=== PATIENT | male | born 1960 | race Caucasian/White ===

== ENCOUNTER 2017-11-13 15:02 | Inpatient (IN) | payer OTHER, MEDICARE ==
[~2017-11-13] VITALS: Ht 182.9 cm; Wt 73.2 kg
[2017-11-13] VITALS (7 sets, daily range): BP systolic 120; BP diastolic 83; PULSE 92–107; RESP 14–18; TEMP 97.3–97.6; O2SAT 98–100
[~2017-11-13 15:02] MED LIST: CALCIUM CHLORIDE 10% SOLN 1 GRAM/10 ML SYR IV ONE; IBUP-232 PO; LIDOCAINE HCL 1% PF 5 ML SYRINGE OTHER ONE; PHENYLEPH/NS 1000 MCG/10 ML SYR IV ONE; PROPOFOL 200 MG/20 ML AMP IV ONE; ROCURONIUM INJ 50 MG/5 ML SYRINGE IV PUSH ONE; SODIUM BICARBONATE 8.4% INJ 50 MEQ/50 ML SYR IV ONE; SODIUM CHLOR 0.9% 1000 ML INJ 3,000 ML IV ONE; VECURONIUM BROMIDE 20 MG VIAL IV ONE; ceFAZolin INJ 1,000 MG VIAL IV ONE; ePHEDrine/NS 25 MG/5 ML SYRINGE IV ONE
[2017-11-13 15:25] LABS: AUTOMATED NEUTROPHIL # 13.5 TH/MM3 (1.8-7.7); BASOPHIL # 0.1 TH/MM3 (0-0.2); BASOPHIL % 0.4 % (0.0-2.0); EOSINOPHIL # 0.1 TH/MM3 (0-0.4); EOSINOPHIL % 0.5 % (0.0-4.0); HEMATOCRIT 34.8 % (39.0-51.0); LYMPH % 15.4 % (9.0-44.0); LYMPHOCYTE # 2.6 TH/MM3 (1.0-4.8); MEAN CELL VOLUME 87.6 FL (80.0-100.0); MEAN CORPUSCULAR HEMOGLOBIN 30.3 PG (27.0-34.0); MEAN CORPUSCULAR HGB CONC 34.6 % (32.0-36.0); MEAN PLATELET VOLUME 7.1 FL (7.0-11.0); MONO % 3.5 % (0.0-8.0); MONOCYTE # 0.6 TH/MM3 (0-0.9); NEUT % 80.2 % (16.0-70.0); PLATELET COUNT 268 TH/MM3 (150-450); RED BLOOD COUNT 3.98 MIL/MM3 (4.50-5.90); RED CELL DISTRIBUTION WIDTH 13.8 % (11.6-17.2); WHITE BLOOD COUNT 16.9 TH/MM3 (4.0-11.0)
[2017-11-13] MEDS ORDERED: ONDANSETRON HCL 4 MG/2 ML VIAL IV PUSH PRN (15:30)
[2017-11-13] MEDS ORDERED: fentaNYL DRIP 250 ML IV PRN (15:30)
[2017-11-13] MEDS ORDERED: PROPOFOL 1000 MG/100 ML INJ 100 ML IV PRN (15:30)
[2017-11-13] MEDS ORDERED: NALOXONE HCL 0.4 MG/ML AMP IV PUSH PRN (15:30)
[2017-11-13] MEDS ORDERED: Post-op Orders (for Pharmacy) XX ONE (15:30)
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
[2017-11-13] MEDS ORDERED: IOHEXOL 350 MG/ML 10 ML VIAL (for RAD DIAG) IVCONTRAST ONE (15:35)
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
[2017-11-13] MEDS ORDERED: PROPOFOL 200 MG/20 ML AMP ONE (15:38)
[2017-11-13] MEDS ORDERED: ROCURONIUM INJ 50 MG/5 ML VIAL ONE (15:38)
[2017-11-13 15:49] LABS: INTERNATIONAL NORMALIZED RATIO 1.1 RATIO; PROTHROMBIN TIME - PATIENT 11.4 SEC (9.8-11.6)
[2017-11-13] MEDS: PANTOPRAZOLE SOD 40 MG DELAYED RELEASE TAB PO SCH (16:00)
[2017-11-13] MEDS ORDERED: SODIUM CHLOR 0.9% 1000 ML INJ 1,000 ML IV SCH (16:00)
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
[2017-11-13] MEDS ORDERED: HEPARIN SODIUM - SQ 10,000 UNITS/ML VIAL ONE (16:10)
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
--- NOTE | 2017-11-13 16:29 | RADRPT ---
EXAM DATE/TIME: 11/13/2017 16:06 [facility] COMPARISON: No previous studies available for comparison. INDICATIONS : Post central line placement and left chest tube placement. MEDICAL HISTORY : None. SURGICAL HISTORY : None. ENCOUNTER: Subsequent ACUITY: 1 day PAIN SCORE: Non-responsive. LOCATION: Bilateral chest FINDINGS: A left subclavian central catheter is present with tip extending to the SVC. Left thoracostomy tube i s present. Nasogastric tube descends in the stomach. Endotracheal tube is stable in satisfactory posi tion. There is mild diffuse hazy opacity of the left chest which may be developing contusion or depen dent hemothorax. Cardiac contours are grossly satisfactory for technique and projection. Multiple lef t-sided rib fractures are noted. CONCLUSION: Satisfactory central line and thoracostomy tube positioning. Worsening aeration in the left lung López Rodrigues MD on November 13, 2017 at 16:25 Board Certified Radiologist. This report was verified electronically.
[2017-11-13] MEDS ORDERED: CALCIUM CHLORIDE 10% SOLN 1 GRAM/10 ML SYR ONE (16:40)
[2017-11-13] MEDS ORDERED: PHARMACY NEEDS HT/WT ENTERED SCH (16:45)
[2017-11-13] MEDS ORDERED: MIDAZOLAM HCL 2 MG/2 ML VIAL ONE (17:00)
[2017-11-13] MEDS ORDERED: SODIUM BICARBONATE 8.4% INJ 50 MEQ/50 ML SYR ONE (17:02)
[2017-11-13] MEDS: PROPOFOL 1000 MG/100 ML INJ 100 ML IV PRN (18:59)
[2017-11-13] MEDS: fentaNYL DRIP 250 ML IV PRN (19:00)
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
[2017-11-13 19:09] LABS: HEMATOCRIT 34.9 % (39.0-51.0); MEAN CELL VOLUME 86.8 FL (80.0-100.0); MEAN CORPUSCULAR HEMOGLOBIN 29.8 PG (27.0-34.0); MEAN CORPUSCULAR HGB CONC 34.3 % (32.0-36.0); MEAN PLATELET VOLUME 7.1 FL (7.0-11.0); PLATELET COUNT 159 TH/MM3 (150-450); RED BLOOD COUNT 4.02 MIL/MM3 (4.50-5.90); RED CELL DISTRIBUTION WIDTH 15.4 % (11.6-17.2); WHITE BLOOD COUNT 13.9 TH/MM3 (4.0-11.0)
[2017-11-13] MEDS: SODIUM CHLOR 0.9% 1000 ML INJ 1,000 ML IV SCH (19:15)
[2017-11-13 19:19] LABS: BICARBONATE 25.8 MEQ/L (21.0-32.0); CALCIUM 7.6 MG/DL (8.5-10.1); CREATININE 1.13 MG/DL (0.60-1.30)
--- NOTE | 2017-11-13 19:45 | RADRPT ---
EXAM DATE/TIME: 11/13/2017 18:56 [facility] COMPARISON: CHEST SINGLE AP, November 13, 2017, 16:06. INDICATIONS : Post chest tube placement, post op. MEDICAL HISTORY : None. SURGICAL HISTORY : None. ENCOUNTER: Subsequent ACUITY: 1 day PAIN SCORE: Non-responsive. LOCATION: Left chest FINDINGS: Endotracheal tube in good position. NG enters stomach. Left-sided chest tube with small residual left pneumothorax. Air in left chest wall. Bilateral perihilar and basilar airspace disease. Left-sided V as-Cath tip in superior vena cava. Drain present in the left upper quadrant. CONCLUSION: 1. Left chest tube with tiny left apical pneumothorax and air in the left chest wall. Endotracheal tube, nasogastric tube, left Vas-Cath unchanged. New drain in left lower thorax. Josué Mathur MD on November 13, 2017 at 19:41 Board Certified Radiologist. This report was verified electronically.
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
[2017-11-13] MEDS ORDERED: CHLORHEXIDINE 0.12% (ORAL KIT) 15 ML CUP MT SCH (20:00)
[2017-11-13] MEDS: CHLORHEXIDINE 0.12% (ORAL KIT) 15 ML CUP MT SCH (20:00)
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
--- NOTE | 2017-11-13 20:26 | EKG ---
Date Performed: 11/13/2017 Time Performed: 20:05:08 PTAGE: 89 years EKG: Sinus rhythm POSSIBLE LEFT ATRIAL ENLARGEMENT BORDERLINE ECG NO PREVIOUS TRACING DOCTOR: Anthony Abernathy Interpretating Date/Time 11/13/2017 20:25:57
[2017-11-13] MEDS: metroNIDAZOLE 500 MG INJ 100 ML IV SCH (21:17)
[2017-11-13] MEDS: SODIUM CHLORIDE 0.9% FLUSH 10 ML FLUSH IV FLUSH SCH (21:18)
[2017-11-13] MEDS: levETIRAcetam INJ 500 MG in SODIUM CHLORIDE 0.9% INJ 100 ML IV SCH (21:18)
[2017-11-14] VITALS (17 sets, daily range): BP systolic 98–136; BP diastolic 56–78; PULSE 76–103; RESP 17–18; TEMP 97.6–99.3; O2SAT 94–100
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
[2017-11-14] MEDS: SODIUM CHLOR 0.9% 1000 ML INJ 1,000 ML IV SCH ×5 (02:23→20:45)
--- NOTE | 2017-11-14 03:24 | RADRPT ---
EXAM DATE/TIME: 11/14/2017 02:03 [facility] COMPARISON: CHEST SINGLE AP, November 13, 2017, 18:56. INDICATIONS : Short of breath. MEDICAL HISTORY : None. SURGICAL HISTORY : None. ENCOUNTER: Subsequent ACUITY: 2 days PAIN SCORE: Non-responsive. LOCATION: Bilateral chest FINDINGS: Endotracheal tube, left subclavian catheter, left chest tube, left lower chest Tommy-Kohler drain, a nd gastric tube are stable in position. Stable infiltrates in the central left lung. Similar degree of subcutaneous emphysema about the left chest. There are a few linear opacities in the lower right lung suggesting atelectasis or scarring. CONCLUSION: Lines and tubes stable. Stable left lung infiltrates. Favian Leung MD on November 14, 2017 at 3:19 Board Certified Radiologist. This report was verified electronically.
[2017-11-14] MEDS: metroNIDAZOLE 500 MG INJ 100 ML IV SCH ×2 (04:23→12:09)
[2017-11-14] MEDS: PROPOFOL 1000 MG/100 ML INJ 100 ML IV PRN ×4 (06:07→23:33)
[2017-11-14] MEDS: 3% SALINE INJ 500 ML IV SCH ×2 (06:50→12:50)
[2017-11-14] MEDS ORDERED: POTASSIUM CHLORIDE 20 MEQ PWD PACKET PO PRN (07:00)
[2017-11-14] MEDS ORDERED: MAGNESIUM SULFATE INJ 2 GM in SODIUM CHLORIDE 0.9% INJ 96 ML IV PRN (07:00)
[2017-11-14] MEDS ORDERED: POTASSIUM PHOSPHATE INJ 30 MMOL in SODIUM CHLOR 0.9% 250 ML INJ 250 ML IV PRN (07:00)
[2017-11-14] MEDS ORDERED: POTASSIUM PHOSPHATE MONOBASIC 500 MG TAB PO PRN (07:00)
[2017-11-14] MEDS ORDERED: MAGNESIUM OXIDE 400 MG TAB PO PRN (07:00)
[2017-11-14] MEDS ORDERED: POTASSIUM CHLOR 40 MEQ PREMIX 100 ML IV PRN ×2 (07:00)
[2017-11-14] MEDS ORDERED: POTASSIUM CHLOR 20 MEQ PREMIX 100 ML IV PRN ×2 (07:00)
[2017-11-14] MEDS ORDERED: MAGNESIUM SULFATE INJ 4 GM in SODIUM CHLORIDE 0.9% INJ 92 ML IV PRN (07:00)
[2017-11-14] MEDS ORDERED: POTASSIUM PHOSPHATE MONOBASIC 500 MG TAB PO/TUBE PRN (07:00)
[2017-11-14] MEDS ORDERED: SODIUM PHOSPHATE INJ 30 MMOL in SODIUM CHLOR 0.9% 250 ML INJ 240 ML IV PRN (07:00)
[2017-11-14] MEDS ORDERED: ceFAZolin 2 GM PREMIX 50 ML ONE (07:21)
[2017-11-14] MEDS ORDERED: THROMBIN (TOPICAL) 5,000 UNIT VIAL ONE ×2 (07:21→10:56)
[2017-11-14] MEDS ORDERED: VANCOMYCIN HCL 1000 MG VIAL ONE ×2 (07:21→14:06)
[2017-11-14] MEDS ORDERED: BUPIVACAINE/EPINEPHRINE 0.5% PF 30 ML VIAL ONE (07:21)
[2017-11-14] MEDS ORDERED: GELFOAM SIZE 100 ONE (07:21)
[2017-11-14] MEDS ORDERED: GENTAMICIN SULFATE 80 MG/2 ML VIAL ONE (07:23)
[2017-11-14] MEDS: CHLORHEXIDINE 0.12% (ORAL KIT) 15 ML CUP MT SCH ×2 (08:00→20:45)
[2017-11-14] MEDS ORDERED: TERBUTALINE INJ 1 MG/ML AMP SQ PRN (08:00)
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
[2017-11-14 08:13] LABS: AUTOMATED NEUTROPHIL # 10.9 TH/MM3 (1.8-7.7); BASOPHIL % 0.2 % (0.0-2.0); HEMATOCRIT 30.6 % (39.0-51.0); HEMOGLOBIN 10.7 GM/DL (13.0-17.0); LYMPH % 10.2 % (9.0-44.0); LYMPHOCYTE # 1.4 TH/MM3 (1.0-4.8); MEAN CELL VOLUME 85.4 FL (80.0-100.0); MEAN CORPUSCULAR HEMOGLOBIN 29.8 PG (27.0-34.0); MEAN CORPUSCULAR HGB CONC 34.9 % (32.0-36.0); MEAN PLATELET VOLUME 7.4 FL (7.0-11.0); MONO % 9.5 % (0.0-8.0); MONOCYTE # 1.3 TH/MM3 (0-0.9); NEUT % 80.1 % (16.0-70.0); PLATELET COUNT 190 TH/MM3 (150-450); RED BLOOD COUNT 3.58 MIL/MM3 (4.50-5.90); RED CELL DISTRIBUTION WIDTH 15.9 % (11.6-17.2); WHITE BLOOD COUNT 13.7 TH/MM3 (4.0-11.0)
[2017-11-14] MEDS: levETIRAcetam INJ 500 MG in SODIUM CHLORIDE 0.9% INJ 100 ML IV SCH ×2 (08:48→20:44)
[2017-11-14] MEDS: SODIUM CHLORIDE 0.9% FLUSH 10 ML FLUSH IV FLUSH SCH ×2 (08:48→20:44)
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
[2017-11-14] MEDS: NOREPINEPHRINE INJ 4 MG in SODIUM CHLOR 0.9% 250 ML INJ 246 ML IV PRN (10:30)
[2017-11-14 10:55] LABS: BICARBONATE 23.1 MEQ/L (21.0-32.0); CREATININE 1.43 MG/DL (0.60-1.30)
[2017-11-14] MEDS ORDERED: HEPARIN SODIUM - SQ 10,000 UNITS/ML VIAL ONE (10:56)
[2017-11-14] MEDS ORDERED: GELATIN POWDER 1 GM PACKET ONE (10:56)
[2017-11-14 10:57] LABS: CALCIUM 7.3 MG/DL (8.5-10.1); PHOSPHORUS 3.8 MG/DL (2.5-4.9)
[2017-11-14] MEDS ORDERED: ePHEDrine/NS 25 MG/5 ML SYRINGE IV ONE (12:00)
[2017-11-14] MEDS ORDERED: SODIUM CHLORID 0.9% 500 ML INJ 500 ML IV ONE (12:00)
[2017-11-14] MEDS ORDERED: LACTATED RINGER'S 1000 ML INJ 2,000 ML IV ONE (12:00)
[2017-11-14] MEDS ORDERED: PROPOFOL 200 MG/20 ML AMP IV ONE (12:00)
[2017-11-14] MEDS ORDERED: NORMOSOL R INJ 1,000 ML IV ONE (12:00)
[2017-11-14] MEDS ORDERED: PHENYLEPHRINE HCL 10 MG/ML VIAL IV ONE (12:00)
[2017-11-14] MEDS ORDERED: SODIUM CHLOR 0.9% 250 ML INJ 500 ML IV ONE (12:00)
[2017-11-14] MEDS ORDERED: PHENYLEPH/NS 1000 MCG/10 ML SYR IV ONE (12:00)
[2017-11-14] MEDS ORDERED: ROCURONIUM INJ 50 MG/5 ML SYRINGE IV PUSH ONE (12:00)
[2017-11-14] MEDS ORDERED: GLYCOPYRROLATE 0.6 MG/3 ML SYRINGE IV PUSH ONE (12:00)
[2017-11-14] MEDS ORDERED: DEXAMETHASONE SOD PHOS 4 MG/ML VIAL IV ONE (12:00)
[2017-11-14 12:22] LABS: CALCIUM-PROTEIN CORRECTED 8.7 MG/DL (8.5-10.1); TOTAL PROTEIN 4.6 GM/DL (6.4-8.2)
[2017-11-14] MEDS ORDERED: SUFentanil INJ 250 MCG/5 ML AMP ONE (13:09)
[2017-11-14] MEDS ORDERED: SODIUM CHLOR 0.9% 250 ML INJ 250 ML ONE (14:07)
--- NOTE | 2017-11-14 15:02 | ECHRPT ---
Indication: BLUNT CHEST TRAUMA CONCLUSIONS Normal left ventricular size. Wall thickness is normal. The left ventricular systolic function is low normal with an estimated ejection fraction in the rang e of 50- 55%. There was limited left ventricular wall motion assessment due to poor endocardial visualization. BP: 119 / 78 HR: 100 Rhythm: MEASUREMENTS (Male / Female) Normal Values Technical Quality:Technically difficult study 2D ECHO LV Diastolic Diameter PLAX 3.5 cm 4.2 - 5.9 / 3.9 - 5.3 cm LV Systolic Diameter PLAX 2.7 cm IVS Diastolic Thickness 0.9 cm 0.6 - 1.0 / 0.6 - 0.9 cm LVPW Diastolic Thickness 0.9 cm 0.6 - 1.0 / 0.6 - 0.9 cm LV Relative Wall Thickness 0.5 DOPPLER Mitral E Point Velocity 29.1 cm/s Mitral A Point Velocity 51.3 cm/s Mitral E to A Ratio 0.6 TR Peak Velocity 122.5 cm/s TR Peak Gradient 6.0 mmHg Right Atrial Pressure 10.0 mmHg Pulmonary Artery Systolic Pressu 16.0 mmHg Right Ventricular Systolic Press 16.0 mmHg FINDINGS LEFT VENTRICLE Normal left ventricular size. Wall thickness is normal. The left ventricular systolic function is low normal with an estimated ejection fraction in the rang e of 50- 55%. There was limited left ventricular wall motion assessment due to poor endocardial visualization. RIGHT VENTRICLE Normal right ventricular size and systolic function. LEFT ATRIUM The left atrial size is normal. RIGHT ATRIUM The right atrial size is normal. ATRIAL SEPTUM Normal atrial septal thickness without atrial level shunting by limited color doppler interrogation. AORTA The aortic root and proximal ascending aorta are normal in size on limited imaging. MITRAL VALVE Structurally normal mitral valve. No mitral valve stenosis or regurgitation. AORTIC VALVE Trileaflet aortic valve. No aortic valve stenosis or regurgitation. TRICUSPID VALVE Structurally normal tricuspid valve. No tricuspid valve stenosis or regurgitation. PULMONARY VALVE No pulmonary valve regurgitation or stenosis. VESSELS The inferior vena cava is normal in size. PERICARDIUM No pericardial effusion. Ap Her MD, FACC, [facility] [place] (Electronically Signed) Final Date:14 November 2017 15:01
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
[2017-11-14] MEDS ORDERED: MORPHINE SULFATE 4 MG/ML INJ IV PUSH PRN ×2 (15:30)
[2017-11-14] MEDS ORDERED: NS + KCL 20 MEQ INJ 1,000 ML IV SCH (16:00)
[2017-11-14] MEDS: PANTOPRAZOLE SOD 40 MG DELAYED RELEASE TAB PO SCH (16:00)
[2017-11-14] MEDS: ceFAZolin 2 GM PREMIX 50 ML IV SCH (16:00)
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
[2017-11-14] MEDS ORDERED: PROPOFOL 500 MG/50 ML INJ 200 ML ONE (17:23)
[2017-11-14] MEDS ORDERED: PHENYLEPHRINE HCL 10 MG/ML VIAL ONE (17:23)
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
[2017-11-14] MEDS ORDERED: MIDAZOLAM HCL 2 MG/2 ML VIAL ONE (19:57)
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
--- NOTE | 2017-11-14 20:08 | RADRPT ---
EXAM DATE/TIME: 11/14/2017 14:45 [facility] COMPARISON: No previous studies available for comparison. INDICATIONS : Post hardware placement thoracic spine MEDICAL HISTORY : None. SURGICAL HISTORY : None. ENCOUNTER: Initial ACUITY: 1 day PAIN SCORE: Non-responsive. LOCATION: Thoracic spine FINDINGS: Postop fusion across 4 consecutive levels thoracic spine. No complications identified. CONCLUSION: 1. Fusion thoracic spine Josué Mathur MD on November 14, 2017 at 20:06 Board Certified Radiologist. This report was verified electronically.
[2017-11-14 20:42] LABS: HEMATOCRIT 31.5 % (39.0-51.0); HEMOGLOBIN 10.7 GM/DL (13.0-17.0); MEAN CELL VOLUME 86.8 FL (80.0-100.0); MEAN CORPUSCULAR HEMOGLOBIN 29.4 PG (27.0-34.0); MEAN CORPUSCULAR HGB CONC 33.9 % (32.0-36.0); PLATELET COUNT 162 TH/MM3 (150-450); RED BLOOD COUNT 3.63 MIL/MM3 (4.50-5.90); RED CELL DISTRIBUTION WIDTH 15.5 % (11.6-17.2)
[2017-11-14] MEDS: fentaNYL DRIP 250 ML IV PRN (20:44)
--- NOTE | 2017-11-14 20:51 | RADRPT ---
EXAM DATE/TIME: 11/14/2017 19:32 [facility] COMPARISON: No previous studies available for comparison. INDICATIONS : Evaluate for ET tube placement. MEDICAL HISTORY : None. SURGICAL HISTORY : None. ENCOUNTER: Subsequent ACUITY: 1 day PAIN SCORE: Non-responsive. LOCATION: chest FINDINGS: A single view of the chest demonstrates left chest tube and left drain without pneumothorax. Endotrac heal tube in good position. Left central line in superior vena cava. NG enters stomach. Previous spin e fixation. Basal airspace disease in the lungs. CONCLUSION: 1. Support Apparatus in good position. Basilar air space disease in lungs. Josué Mathur MD on November 14, 2017 at 20:32 Board Certified Radiologist. This report was verified electronically.
[2017-11-14 21:05] LABS: BICARBONATE 23.3 MEQ/L (21.0-32.0); CALCIUM 6.7 MG/DL (8.5-10.1); CREATININE 1.54 MG/DL (0.60-1.30)
[2017-11-14 21:17] LABS: CALCIUM-PROTEIN CORRECTED 8.1 MG/DL (8.5-10.1); TOTAL PROTEIN 4.4 GM/DL (6.4-8.2)
[2017-11-15] VITALS (19 sets, daily range): BP systolic 102–149; BP diastolic 56–78; PULSE 66–74; RESP 22; TEMP 98.1–99.8; O2SAT 91–100
[2017-11-15] MEDS: SODIUM CHLOR 0.9% 1000 ML INJ 1,000 ML IV SCH ×2 (01:15→05:01)
[2017-11-15] MEDS: ceFAZolin 2 GM PREMIX 50 ML IV SCH (01:59)
[2017-11-15] MEDS: NOREPINEPHRINE INJ 4 MG in SODIUM CHLOR 0.9% 250 ML INJ 246 ML IV PRN (01:59)
[2017-11-15] MEDS ORDERED: ROCURONIUM INJ 50 MG/5 ML VIAL ONE (02:03)
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
--- NOTE | 2017-11-15 03:00 | RADRPT ---
EXAM DATE/TIME: 11/15/2017 02:25 [facility] COMPARISON: CHEST SINGLE AP, November 14, 2017, 19:32. INDICATIONS : Status post re-intubation. MEDICAL HISTORY : None. SURGICAL HISTORY : None. ENCOUNTER: Subsequent ACUITY: 1 day PAIN SCORE: 0/10 LOCATION: chest FINDINGS: A single AP semierect view the chest was obtained and demonstrates an endotracheal tube in place with the tip now at the level of the crissy at the level of the right mainstem bronchus. The nasogastric tube remains in place. There is a left sided chest tube in place with no pneumothorax. The left subcl jonnie double lumen central line remains in place as well. Hazy perihilar and bibasilar opacities are again noted. There is moderate cardiomegaly. CONCLUSION: 1. The endotracheal tube tip lies at the level of the crissy just above the right mainstem bronchus. 2. Hazy perihilar and bibasilar opacities remain with no pneumothorax. Isaac Tinsley MD on November 15, 2017 at 2:55 Board Certified Radiologist. This report was verified electronically.
[2017-11-15 05:43] LABS: AUTOMATED NEUTROPHIL # 13.4 TH/MM3 (1.8-7.7); BASOPHIL % 0.1 % (0.0-2.0); HEMATOCRIT 26.5 % (39.0-51.0); HEMOGLOBIN 9.2 GM/DL (13.0-17.0); LYMPH % 5.8 % (9.0-44.0); LYMPHOCYTE # 0.9 TH/MM3 (1.0-4.8); MEAN CELL VOLUME 86.9 FL (80.0-100.0); MEAN CORPUSCULAR HEMOGLOBIN 30.3 PG (27.0-34.0); MEAN CORPUSCULAR HGB CONC 34.9 % (32.0-36.0); MEAN PLATELET VOLUME 7.8 FL (7.0-11.0); MONOCYTE # 1.1 TH/MM3 (0-0.9); NEUT % 87.1 % (16.0-70.0); PLATELET COUNT 161 TH/MM3 (150-450); RED BLOOD COUNT 3.05 MIL/MM3 (4.50-5.90); RED CELL DISTRIBUTION WIDTH 15.8 % (11.6-17.2); WHITE BLOOD COUNT 15.4 TH/MM3 (4.0-11.0)
[2017-11-15 06:12] LABS: BICARBONATE 23.1 MEQ/L (21.0-32.0); CALCIUM 7.1 MG/DL (8.5-10.1); CREATININE 1.21 MG/DL (0.60-1.30)
[2017-11-15 06:29] LABS: CALCIUM-PROTEIN CORRECTED 8.7 MG/DL (8.5-10.1); TOTAL PROTEIN 4.3 GM/DL (6.4-8.2)
[2017-11-15] MEDS: 3% SALINE INJ 500 ML IV SCH (06:43)
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
[2017-11-15] MEDS: CHLORHEXIDINE 0.12% (ORAL KIT) 15 ML CUP MT SCH ×2 (08:42→20:50)
[2017-11-15] MEDS: levETIRAcetam INJ 500 MG in SODIUM CHLORIDE 0.9% INJ 100 ML IV SCH ×2 (08:42→20:50)
[2017-11-15] MEDS: PANTOPRAZOLE SODIUM 40 MG VIAL IVP SCH (08:42)
[2017-11-15] MEDS: SODIUM CHLORIDE 0.9% FLUSH 10 ML FLUSH IV FLUSH SCH ×2 (08:42→20:52)
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
[2017-11-15] MEDS ORDERED: IOHEXOL 350 MG/ML 10 ML VIAL (for RAD DIAG) IVCONTRAST ONE (18:22)
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
[2017-11-15] MEDS: PROPOFOL 1000 MG/100 ML INJ 100 ML IV PRN (21:25)
[2017-11-16] VITALS (16 sets, daily range): BP systolic 100–136; BP diastolic 57–82; PULSE 63–82; RESP 20–22; TEMP 98.1–99.4; O2SAT 100
[2017-11-16] MEDS: 3% SALINE INJ 500 ML IV SCH (01:13)
[2017-11-16] MEDS: fentaNYL DRIP 250 ML IV PRN (03:31)
[2017-11-16] MEDS: PROPOFOL 1000 MG/100 ML INJ 100 ML IV PRN (03:31)
[2017-11-16 03:51] LABS: AUTOMATED NEUTROPHIL # 14.4 TH/MM3 (1.8-7.7); BASOPHIL # 0.1 TH/MM3 (0-0.2); BASOPHIL % 0.3 % (0.0-2.0); EOSINOPHIL # 0.2 TH/MM3 (0-0.4); EOSINOPHIL % 1.4 % (0.0-4.0); HEMATOCRIT 24.1 % (39.0-51.0); HEMOGLOBIN 8.3 GM/DL (13.0-17.0); LYMPH % 10.8 % (9.0-44.0); LYMPHOCYTE # 1.9 TH/MM3 (1.0-4.8); MEAN CELL VOLUME 88.1 FL (80.0-100.0); MEAN CORPUSCULAR HEMOGLOBIN 30.3 PG (27.0-34.0); MEAN CORPUSCULAR HGB CONC 34.4 % (32.0-36.0); MEAN PLATELET VOLUME 8.1 FL (7.0-11.0); MONO % 7.2 % (0.0-8.0); MONOCYTE # 1.3 TH/MM3 (0-0.9); NEUT % 80.3 % (16.0-70.0); PLATELET COUNT 216 TH/MM3 (150-450); RED BLOOD COUNT 2.73 MIL/MM3 (4.50-5.90); RED CELL DISTRIBUTION WIDTH 15.9 % (11.6-17.2); WHITE BLOOD COUNT 17.9 TH/MM3 (4.0-11.0)
[2017-11-16 04:23] LABS: BICARBONATE 25.3 MEQ/L (21.0-32.0); CALCIUM 7.3 MG/DL (8.5-10.1); CREATININE 1.03 MG/DL (0.60-1.30)
[2017-11-16 04:37] LABS: CALCIUM-PROTEIN CORRECTED 8.8 MG/DL (8.5-10.1); TOTAL PROTEIN 4.5 GM/DL (6.4-8.2)
--- NOTE | 2017-11-16 04:50 | RADRPT ---
EXAM DATE/TIME: 11/16/2017 03:19 [facility] COMPARISON: CHEST SINGLE AP, November 15, 2017, 2:25. INDICATIONS : Short of breath. Pulmonary contusion follow up. MEDICAL HISTORY : None. SURGICAL HISTORY : Thoracic spine fusion. ENCOUNTER: Subsequent ACUITY: 2 days PAIN SCORE: Non-responsive. LOCATION: Bilateral chest FINDINGS: A single AP portable view of the chest was obtained and again demonstrates the endotracheal tube in p lace with the tip now located 3 cm above the crissy. Nasogastric tube is seen coursing through the es ophagus and the stomach. Hazy opacity remains in both lung bases right greater than left. This is mil dly improved.. The left subclavian central venous catheter remains in place. The left-sided chest tub e is unchanged in appearance and there is no pneumothorax. CONCLUSION: 1. The endotracheal tube tip now lies 3 cm above the crissy. 2. The left-sided chest tube remains in place with no pneumothorax. 3. Hazy opacity at both lung bases with apparent mild improvement. Isaac Tinsley MD on November 16, 2017 at 4:46 Board Certified Radiologist. This report was verified electronically.
[2017-11-16] MEDS: CHLORHEXIDINE 0.12% (ORAL KIT) 15 ML CUP MT SCH ×2 (08:55→20:47)
[2017-11-16] MEDS: PANTOPRAZOLE SODIUM 40 MG VIAL IVP SCH (09:07)
[2017-11-16] MEDS: levETIRAcetam INJ 500 MG in SODIUM CHLORIDE 0.9% INJ 100 ML IV SCH ×2 (09:07→20:48)
[2017-11-16] MEDS: SODIUM CHLORIDE 0.9% FLUSH 10 ML FLUSH IV FLUSH SCH ×2 (09:07→20:48)
[2017-11-16] MEDS ORDERED: FUROSEMIDE 40 MG/4 ML VIAL IV PUSH ONE (11:00)
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
[2017-11-16] MEDS ORDERED: 2% NS 1000 ML IV SCH ×2 (16:00)
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
[2017-11-17] VITALS (20 sets, daily range): BP systolic 115–149; BP diastolic 63–79; PULSE 60–74; RESP 16–20; TEMP 99–100.3; O2SAT 99–100
[2017-11-17] MEDS: fentaNYL DRIP 250 ML IV PRN (02:38)
[2017-11-17 07:06] LABS: BASOPHIL # 0.1 TH/MM3 (0-0.2); BASOPHIL % 0.5 % (0.0-2.0); EOSINOPHIL # 0.5 TH/MM3 (0-0.4); EOSINOPHIL % 3.2 % (0.0-4.0); HEMATOCRIT 23.2 % (39.0-51.0); HEMOGLOBIN 7.8 GM/DL (13.0-17.0); LYMPH % 14.5 % (9.0-44.0); LYMPHOCYTE # 2.4 TH/MM3 (1.0-4.8); MEAN CELL VOLUME 89.7 FL (80.0-100.0); MEAN CORPUSCULAR HEMOGLOBIN 30.2 PG (27.0-34.0); MEAN CORPUSCULAR HGB CONC 33.7 % (32.0-36.0); MONO % 9.6 % (0.0-8.0); MONOCYTE # 1.6 TH/MM3 (0-0.9); NEUT % 72.2 % (16.0-70.0); PLATELET COUNT 294 TH/MM3 (150-450); RED BLOOD COUNT 2.59 MIL/MM3 (4.50-5.90); RED CELL DISTRIBUTION WIDTH 15.8 % (11.6-17.2); WHITE BLOOD COUNT 16.6 TH/MM3 (4.0-11.0)
[2017-11-17 07:35] LABS: CALCIUM 7.7 MG/DL (8.5-10.1); CREATININE 0.97 MG/DL (0.60-1.30)
[2017-11-17] MEDS: levETIRAcetam INJ 500 MG in SODIUM CHLORIDE 0.9% INJ 100 ML IV SCH ×2 (08:40→20:37)
[2017-11-17] MEDS: SODIUM CHLORIDE 0.9% FLUSH 10 ML FLUSH IV FLUSH SCH ×2 (08:40→20:37)
[2017-11-17] MEDS: CHLORHEXIDINE 0.12% (ORAL KIT) 15 ML CUP MT SCH ×2 (08:40→20:37)
[2017-11-17] MEDS: PANTOPRAZOLE SODIUM 40 MG VIAL IVP SCH (08:40)
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
[2017-11-17] MEDS: PROPOFOL 1000 MG/100 ML INJ 100 ML IV PRN ×2 (09:52→21:50)
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
[2017-11-17] MEDS: ACETAMINOPHEN 325 MG TAB PO PRN (12:34)
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
[2017-11-17] MEDS: MAGNESIUM HYDROXIDE SUSP 30 ML CUP PO SCH (20:37)
[2017-11-17] MEDS: DOCUSATE SODIUM 50 MG/SENNA 8.6 MG TAB PO SCH (20:37)
[2017-11-18] VITALS (16 sets, daily range): BP systolic 98–126; BP diastolic 60–75; PULSE 58–73; RESP 16; TEMP 99.1–100.3; O2SAT 98–100
[2017-11-18] MEDS ORDERED: POVIDONE IODINE 5% (ANTISEPSIS KIT) 4 APPLICATIONS EACH NARE PRN (01:15)
[2017-11-18] MEDS ORDERED: LACTATED RINGER'S 1000 ML IV PRN (01:15)
[2017-11-18] MEDS ORDERED: SODIUM CHLORID 0.9% 500 ML IV PRN (01:15)
[2017-11-18] MEDS ORDERED: CHLORHEXIDINE GLUCONATE 2 % 1 PACK (2 CLOTHS) TOPICAL PRN (01:15)
[2017-11-18] MEDS: fentaNYL DRIP 250 ML IV PRN ×2 (03:31→19:31)
--- NOTE | 2017-11-18 06:24 | RADRPT ---
EXAM DATE/TIME: 11/18/2017 05:02 [facility] COMPARISON: CHEST SINGLE AP, November 16, 2017, 3:19. INDICATIONS : Short of breath. MEDICAL HISTORY : Thoracic spine fusion. SURGICAL HISTORY : None. ENCOUNTER: Subsequent ACUITY: 1 week PAIN SCORE: 0/10 LOCATION: Bilateral chest FINDINGS: A single view of the chest demonstrates bibasilar densities. Probable small pleural effusions. Endotr acheal tube, nasogastric tube and left-sided chest tube stable in position. There is slight interstit ial prominence. No pneumothorax. Osseous structures are intact. Fusion of the mid to lower thoracic spine. CONCLUSION: 1. Slight interstitial prominence and bibasilar densities slightly more prominent. 2. Probable small pleural effusions. 3. Support lines and tubes are unchanged. Sebastian Zimmerman MD on November 18, 2017 at 6:19 Board Certified Radiologist. This report was verified electronically.
[2017-11-18 07:04] LABS: AUTOMATED NEUTROPHIL # 13.2 TH/MM3 (1.8-7.7); BASOPHIL # 0.1 TH/MM3 (0-0.2); BASOPHIL % 0.6 % (0.0-2.0); EOSINOPHIL # 0.8 TH/MM3 (0-0.4); EOSINOPHIL % 4.2 % (0.0-4.0); HEMATOCRIT 25.6 % (39.0-51.0); HEMOGLOBIN 8.3 GM/DL (13.0-17.0); LYMPH % 11.9 % (9.0-44.0); LYMPHOCYTE # 2.2 TH/MM3 (1.0-4.8); MEAN CELL VOLUME 91.7 FL (80.0-100.0); MEAN CORPUSCULAR HEMOGLOBIN 29.8 PG (27.0-34.0); MEAN CORPUSCULAR HGB CONC 32.5 % (32.0-36.0); MEAN PLATELET VOLUME 7.9 FL (7.0-11.0); MONO % 11.6 % (0.0-8.0); MONOCYTE # 2.1 TH/MM3 (0-0.9); NEUT % 71.7 % (16.0-70.0); PLATELET COUNT 382 TH/MM3 (150-450); RED BLOOD COUNT 2.79 MIL/MM3 (4.50-5.90); RED CELL DISTRIBUTION WIDTH 15.7 % (11.6-17.2); WHITE BLOOD COUNT 18.4 TH/MM3 (4.0-11.0)
[2017-11-18 07:21] LABS: CALCIUM 7.9 MG/DL (8.5-10.1); CREATININE 0.88 MG/DL (0.60-1.30)
[2017-11-18] MEDS: MAGNESIUM HYDROXIDE SUSP 30 ML CUP PO SCH ×2 (09:42→21:36)
[2017-11-18] MEDS: CHLORHEXIDINE 0.12% (ORAL KIT) 15 ML CUP MT SCH ×2 (09:43→20:00)
[2017-11-18] MEDS: PANTOPRAZOLE SODIUM 40 MG VIAL IVP SCH (09:43)
[2017-11-18] MEDS: levETIRAcetam INJ 500 MG in SODIUM CHLORIDE 0.9% INJ 100 ML IV SCH ×2 (09:43→21:37)
[2017-11-18] MEDS: DOCUSATE SODIUM 50 MG/SENNA 8.6 MG TAB PO SCH ×2 (09:43→21:36)
[2017-11-18] MEDS: SODIUM CHLORIDE 0.9% FLUSH 10 ML FLUSH IV FLUSH SCH ×2 (09:44→21:00)
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
--- NOTE | 2017-11-18 12:14 | HHI.PR ---
Neuropsych Emotional Emotional: UnabletoAssess: Emotional, Anxious/Fearful, Depressed/Sad, Hostile/ Resentful, Irritable/Angry/Frustrate, Labile, Constricted/Blunted Behavior Behavior: Intact: Impulsive/Agitated Cognitive Cognitive: Unable to Asses: Cognitive, Attention/Concentration, Confused/ Orientation, Insight/Awareness, Judgement/Problem-Solving, Memory Psychosocial Psychosocial: Unable to Asses: Psychosocial, Family/Other Adjustment, Realistic Expectation, Self-Esteem/Confidence Progress Notes/Response to Tx Contents of Sessions: Adjustment, Level of Consciousness Time with Patient: 15 minutes Premorbid psychological status Premorbid Cognitive, Emotional and Behavioral Status: [Tenuous / Stable / Unstable / Deferred / Unable to Assess] The patient has [] years of education and a [solid / sporadic] work history prior to this injury. The patient has [ no / prior] psychiatric difficulties, as described above. Substance abuse history includes []. Behavioral Reactions of Patient and Family/Support System: [Tenuous / Stable / Unstable / Deferred / Unable to Assess] The patients family is experiencing ongoing issues of adjustment given the nature of the injury, and this aspect of recovery will require ongoing monitoring. Emotional/Behavioral Status of Patient and Family/Support System: [Tenuous / Stable / Unstable / Deferred / Unable to Assess] Pertinent issues, if appropriate to this patients clinical care, are described in detail above. Maximizing acute care outcome It is recommended that the patient be monitored for emergent behavioral impulsivity as the medical condition evolves. This patients neuropathological challenges may limit his rehabilitation potential going forward, and these challenges will require specialized therapeutic skills to maximize outcome. Additionally, the patients family is experiencing ongoing issues of adjustment given the traumatic nature of the injury, and they may benefit from ongoing psychological assistance. At this point in the recovery process, the patient does not have cognitive capacity as the patient is unable to understand a situation and its likely consequences, nor is he able to manipulate information rationally. Cognitive capacity will be assessed throughout the recovery process. Anticipated Problems Ongoing areas of concern will include behavioral impulsivity, lack of insight and judgment, which is expected to improve with time and treatment. Presently , the patient intubated and sedated. Given the severity of the patient's injuries it is my clinical opinion that this patient will be unable to return to any type of productive employment for at least one year, perhaps longer and likely never. This patient is not considered safe to discharge home without supervision. Treatment Plan This clinician will continue to follow with you throughout the course of this patients rehabilitation treatment, and I will be available to meet with the patients family/support system to facilitate their understanding and the ongoing care of their family member. The goals of neuropsychological intervention shall be both educational and supportive to the family/support system as is deemed clinically appropriate. Additionally, I would recommend a referral to Dr. Bernal for ongoing patient and family adjustment issues if they are coming to [place]. [facility] Level: I:No response-total assistance Impression 57 year old [place] s/p [place] [facility] [place]. Diagnosis: (1) Major neurocognitive disorder as late effect of traumatic brain injury with behavioral disturbance Progress Note Narrative PTD 5. The patient remains intubated and sedated. On sedation vacations, the patient is noted to be moving x 4 but not follows. He is [place] II. No neurobehavioral issues at present. I will follow. Samir Granado PhD Nov 18, 2017 12:14
[2017-11-18] MEDS: PROPOFOL 1000 MG/100 ML INJ 100 ML IV PRN ×3 (13:07→19:35)
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
[2017-11-19] VITALS (17 sets, daily range): BP systolic 92–120; BP diastolic 59–71; PULSE 58–72; RESP 16–18; TEMP 98.8–99.9; O2SAT 94–100
[2017-11-19] MEDS: PROPOFOL 1000 MG/100 ML INJ 100 ML IV PRN ×2 (03:43→21:02)
[2017-11-19 04:40] LABS: AUTOMATED NEUTROPHIL # 14.2 TH/MM3 (1.8-7.7); BASOPHIL # 0.1 TH/MM3 (0-0.2); BASOPHIL % 0.7 % (0.0-2.0); EOSINOPHIL # 0.8 TH/MM3 (0-0.4); EOSINOPHIL % 4.3 % (0.0-4.0); HEMATOCRIT 24.4 % (39.0-51.0); LYMPH % 12.4 % (9.0-44.0); LYMPHOCYTE # 2.4 TH/MM3 (1.0-4.8); MEAN CELL VOLUME 90.5 FL (80.0-100.0); MEAN CORPUSCULAR HEMOGLOBIN 29.7 PG (27.0-34.0); MEAN CORPUSCULAR HGB CONC 32.9 % (32.0-36.0); MEAN PLATELET VOLUME 7.6 FL (7.0-11.0); MONO % 10.2 % (0.0-8.0); NEUT % 72.4 % (16.0-70.0); PLATELET COUNT 486 TH/MM3 (150-450); RED BLOOD COUNT 2.69 MIL/MM3 (4.50-5.90); RED CELL DISTRIBUTION WIDTH 15.7 % (11.6-17.2); WHITE BLOOD COUNT 19.6 TH/MM3 (4.0-11.0)
[2017-11-19 05:05] LABS: ALBUMIN 1.8 GM/DL (3.4-5.0); ALKALINE PHOSPHATASE 67 U/L (45-117); ALT (GPT) 18 U/L (12-78); AST (GOT) 31 U/L (15-37); BICARBONATE 28.6 MEQ/L (21.0-32.0); BLOOD UREA NITROGEN 23 MG/DL (7-18); CHLORIDE 123 MEQ/L (98-107); CREATININE 0.87 MG/DL (0.60-1.30); GLOMERULAR FILTRATION RATE 91 ML/MIN (>89); GLUCOSE,RANDOM 84 MG/DL (74-106); TOTAL BILIRUBIN ADULT 0.5 MG/DL (0.2-1.0); TOTAL PROTEIN 5.2 GM/DL (6.4-8.2)
[2017-11-19 05:07] LABS: SODIUM (NA) 156 MEQ/L (136-145)
--- NOTE | 2017-11-19 05:58 | RADRPT ---
EXAM DATE/TIME: 11/19/2017 05:07 [facility] COMPARISON: CHEST SINGLE AP, November 18, 2017, 5:02. INDICATIONS : Follow up trauma. Short of breath. MEDICAL HISTORY : None. SURGICAL HISTORY : Fusion, thoracic. ENCOUNTER: Subsequent ACUITY: 1 week PAIN SCORE: Non-responsive. LOCATION: Bilateral chest FINDINGS: A single view of the chest demonstrates improving bibasilar densities. Left-sided chest tube without pneumothorax. Left lower lateral rib fractures. Thoracic spinal fusion noted. Endotracheal tube, naso gastric tube and left subclavian central line in stable position.. CONCLUSION: Improving bibasilar densities. No pneumothorax. Sebastian Zimmerman MD on November 19, 2017 at 5:54 Board Certified Radiologist. This report was verified electronically.
[2017-11-19] MEDS: DOCUSATE SODIUM 50 MG/SENNA 8.6 MG TAB PO SCH ×2 (08:35→20:20)
[2017-11-19] MEDS: PANTOPRAZOLE SODIUM 40 MG VIAL IVP SCH (08:35)
[2017-11-19] MEDS: CHLORHEXIDINE 0.12% (ORAL KIT) 15 ML CUP MT SCH ×2 (08:35→20:00)
[2017-11-19] MEDS: levETIRAcetam INJ 500 MG in SODIUM CHLORIDE 0.9% INJ 100 ML IV SCH ×2 (08:35→21:52)
[2017-11-19] MEDS: MAGNESIUM HYDROXIDE SUSP 30 ML CUP PO SCH ×2 (08:35→20:20)
[2017-11-19] MEDS: SODIUM CHLORIDE 0.9% FLUSH 10 ML FLUSH IV FLUSH SCH ×2 (08:36→20:20)
--- NOTE | 2017-11-19 08:46 | HHI.PR ---
Neuropsych Emotional Emotional: UnabletoAssess: Emotional, Anxious/Fearful, Depressed/Sad, Hostile/ Resentful, Irritable/Angry/Frustrate, Labile, Constricted/Blunted Behavior Behavior: Intact: Impulsive/Agitated, Unable to Asses: Behavior, Coping/ Acceptance, Cooperative w/ Treatment, Motivation, Frustration Tolerance/[place], Suicidal/Homicidal Risk Cognitive Cognitive: Unable to Asses: Cognitive, Attention/Concentration, Confused/ Orientation, Insight/Awareness, Judgement/Problem-Solving, Memory Psychosocial Psychosocial: Unable to Asses: Psychosocial, Family/Other Adjustment, Realistic Expectation, Self-Esteem/Confidence Progress Notes/Response to Tx Contents of Sessions: Adjustment, Level of Consciousness Time with Patient: 15 minutes Premorbid psychological status Premorbid Cognitive, Emotional and Behavioral Status: Unable to Assess. The patient has high school years of education and an unknown work history prior to this injury. The patient has unknown psychiatric difficulties, as described above. Substance abuse history is significant. Behavioral Reactions of Patient and Family/Support System: Unable to Assess. The patients family is experiencing ongoing issues of adjustment given the nature of the injury, and this aspect of recovery will require ongoing monitoring. Emotional/Behavioral Status of Patient and Family/Support System: Unable to Assess. Pertinent issues, if appropriate to this patients clinical care, are described in detail above. Maximizing acute care outcome It is recommended that the patient be monitored for emergent behavioral impulsivity as the medical condition evolves. This patients neuropathological challenges may limit his rehabilitation potential going forward, and these challenges will require specialized therapeutic skills to maximize outcome. Additionally, the patients family is experiencing ongoing issues of adjustment given the traumatic nature of the injury, and they may benefit from ongoing psychological assistance. At this point in the recovery process, the patient does not have cognitive capacity as the patient is unable to understand a situation and its likely consequences, nor is he able to manipulate information rationally. Cognitive capacity will be assessed throughout the recovery process. Anticipated Problems Ongoing areas of concern will include behavioral impulsivity, lack of insight and judgment, which is expected to improve with time and treatment. Presently , the patient intubated and sedated. Given the severity of the patient's injuries it is my clinical opinion that this patient will be unable to return to any type of productive employment for at least one year, perhaps longer and likely never. This patient is not considered safe to discharge home without supervision. Treatment Plan This clinician will continue to follow with you throughout the course of this patients critical care treatment, and I will be available to meet with the patients family/support system to facilitate their understanding and the ongoing care of their family member. The goals of neuropsychological intervention shall be both educational and supportive to the family/support system as is deemed clinically appropriate. [facility]: III:Localized response-total assist Impression 57 year [place] [facility] [place] Diagnosis: (1) Major neurocognitive disorder as late effect of traumatic brain injury with behavioral disturbance Progress Note Narrative PTD 6. The patient remains intubated and ventilated. He opens eyes on sedation vacations. No neurobehavioral issues at present. He is [place]. I will follow. Samir Granado PhD Nov 19, 2017 8:46 am
[2017-11-19] MEDS ORDERED: GENTAMICIN SULFATE 80 MG/2 ML VIAL ONE (11:40)
[2017-11-19] MEDS ORDERED: PROPOFOL 200 MG/20 ML AMP IV ONE (12:00)
[2017-11-19] MEDS ORDERED: ceFAZolin INJ 1,000 MG VIAL IV ONE ×2 (12:00→12:16)
[2017-11-19] MEDS ORDERED: LIDOCAINE HCL 1% PF 5 ML SYRINGE OTHER ONE (12:00)
[2017-11-19] MEDS ORDERED: ACETAMINOPHEN 1000 MG/100 ML 100 ML IV ONE (12:34)
[2017-11-19] MEDS ORDERED: PROPOFOL 500 MG/50 ML INJ 50 ML ONE (12:35)
--- NOTE | 2017-11-19 12:44 | PD.ORT.PN ---
Subjective Subjective Remarks s/p left distal radius fx bolt removed and patient improving. cleared for surgery today Objective Vitals Vital Signs Date Time Temp Pulse Resp B/P (MAP) Pulse Ox O2 Delivery O2 Flow Rate FiO2 11/19/17 11:25 100 100 11/19/17 10:00 65 11/19/17 08:55 98 30 11/19/17 08:55 97 30 11/19/17 08:00 11/19/17 08:00 59 11/19/17 08:00 30 11/19/17 08:00 99.7 59 18 99/63 (75) 97 11/19/17 07:00 100 Mechanical Ventilator 30 11/19/17 06:00 60 11/19/17 04:13 97 30 11/19/17 04:00 60 11/19/17 04:00 30 11/19/17 04:00 99.4 60 18 92/59 (70) 97 11/19/17 02:00 58 11/19/17 01:29 99 30 11/19/17 01:29 99 30 11/19/17 00:00 99.2 58 16 92/62 (72) 99 11/19/17 00:00 30 11/19/17 00:00 58 11/18/17 22:00 58 11/18/17 20:06 98 30 11/18/17 20:00 64 11/18/17 20:00 30 11/18/17 20:00 Arterial Line 11/18/17 20:00 99.5 64 16 102/64 (77) 98 11/18/17 19:00 100 Mechanical Ventilator 30 11/18/17 18:00 60 11/18/17 16:00 58 11/18/17 16:00 99.1 58 16 99/64 (76) 98 11/18/17 16:00 30 11/18/17 14:00 59 I/O 11/18/17 11/18/17 11/18/17 11/19/17 11/19/17 11/19/17 07:00 15:00 23:00 07:00 15:00 23:00 Intake Total 120 ml 305 ml 635 ml 100 ml Output Total 900 ml 1000 ml 760 ml Balance -780 ml 305 ml -365 ml -660 ml Intake IV Total 305 ml 455 ml 100 ml Tube Feeding 120 ml 180 ml Output Urine Total 850 ml 900 ml 750 ml Gastric Drainage Total 0 ml 0 ml Chest Tube Drainage Total 50 ml 100 ml 10 ml # Bowel Movements 0 0 0 Result Diagram: 11/19/175 11/19/17414 Imaging Last 24 hours Impressions Chest X-Ray 11/19/17 0600 Signed Impressions: Service Date/Time: Sunday, November 19, 2017 05:07 - CONCLUSION: Improving bibasilar densities. No pneumothorax. Sebastian Zimmerman MD Objective Remarks LUE: +splint. intact. good repair. +cap refill. Assessment & Plan Assessment and Plan 1) Left Distal Radius Fx -NPO -consents on chart -surgery today with Dr Nhan Ruiz for ORIF Jm Valentin/[employer] Nov 19, 2017 12:44
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
[2017-11-19] MEDS ORDERED: Post-op Orders (for Pharmacy) XX ONE (13:15)
--- NOTE | 2017-11-19 15:10 | RADRPT ---
EXAM DATE/TIME: 11/19/2017 12:59 [facility] COMPARISON: No previous studies available for comparison. INDICATIONS : Orif left wrist. MEDICAL HISTORY : Distal radial fracture SURGICAL HISTORY : Fusion, thoracic. ENCOUNTER: Subsequent ACUITY: 1 week PAIN SCORE: Non-responsive. LOCATION: Left Wrist. FINDINGS: There is plate and screw fixation of the distal left radius across a comminuted intra-articular fract ure. Near anatomic alignment. Overlying soft tissue swelling. CONCLUSION: 1. Fixation of distal left radius. Josué Mathur MD on November 19, 2017 at 15:07 Board Certified Radiologist. This report was verified electronically.
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
[2017-11-19] MEDS: LACTATED RINGER'S 1000 ML INJ 1,000 ML IV SCH (17:16)
[2017-11-19] MEDS: fentaNYL DRIP 250 ML IV PRN (20:20)
[2017-11-20] VITALS (18 sets, daily range): BP systolic 99–120; BP diastolic 63–71; PULSE 60–76; RESP 18; TEMP 99.7–102.3; O2SAT 94–99
[2017-11-20] MEDS: ACETAMINOPHEN 325 MG TAB PO PRN ×2 (00:25→08:04)
[2017-11-20] MEDS: LACTATED RINGER'S 1000 ML INJ 1,000 ML IV SCH ×2 (01:01→03:30)
[2017-11-20 04:18] LABS: AUTOMATED NEUTROPHIL # 17.4 TH/MM3 (1.8-7.7); BASOPHIL # 0.1 TH/MM3 (0-0.2); BASOPHIL % 0.4 % (0.0-2.0); EOSINOPHIL # 0.8 TH/MM3 (0-0.4); EOSINOPHIL % 3.7 % (0.0-4.0); HEMATOCRIT 25.4 % (39.0-51.0); HEMOGLOBIN 8.3 GM/DL (13.0-17.0); LYMPH % 9.8 % (9.0-44.0); LYMPHOCYTE # 2.1 TH/MM3 (1.0-4.8); MEAN CELL VOLUME 91.7 FL (80.0-100.0); MEAN CORPUSCULAR HEMOGLOBIN 29.7 PG (27.0-34.0); MEAN CORPUSCULAR HGB CONC 32.4 % (32.0-36.0); MEAN PLATELET VOLUME 7.9 FL (7.0-11.0); MONO % 6.8 % (0.0-8.0); MONOCYTE # 1.5 TH/MM3 (0-0.9); NEUT % 79.3 % (16.0-70.0); PLATELET COUNT 577 TH/MM3 (150-450); RED BLOOD COUNT 2.78 MIL/MM3 (4.50-5.90); RED CELL DISTRIBUTION WIDTH 15.3 % (11.6-17.2); WHITE BLOOD COUNT 21.9 TH/MM3 (4.0-11.0)
[2017-11-20 04:57] LABS: ALBUMIN 1.7 GM/DL (3.4-5.0); ALKALINE PHOSPHATASE 90 U/L (45-117); ALT (GPT) 14 U/L (12-78); AST (GOT) 24 U/L (15-37); BICARBONATE 28.7 MEQ/L (21.0-32.0); BLOOD UREA NITROGEN 23 MG/DL (7-18); CALCIUM 7.5 MG/DL (8.5-10.1); CHLORIDE 124 MEQ/L (98-107); CREATININE 1.05 MG/DL (0.60-1.30); GLOMERULAR FILTRATION RATE 73 ML/MIN (>89); GLUCOSE,RANDOM 139 MG/DL (74-106); TOTAL BILIRUBIN ADULT 0.3 MG/DL (0.2-1.0); TOTAL PROTEIN 5.1 GM/DL (6.4-8.2)
[2017-11-20 05:17] LABS: SODIUM (NA) 157 MEQ/L (136-145)
--- NOTE | 2017-11-20 06:14 | RADRPT ---
EXAM DATE/TIME: 11/20/2017 05:17 [facility] COMPARISON: CHEST SINGLE AP, November 19, 2017, 5:07. INDICATIONS : Shortness of breath. MEDICAL HISTORY : None. SURGICAL HISTORY : Fusion, thoracic ENCOUNTER: Subsequent ACUITY: 1 week PAIN SCORE: Non-responsive. LOCATION: Bilateral chest FINDINGS: A single view of the chest demonstrates slight worsening of hazy opacities greater in the left lung. Cardiomegaly and probable small pleural effusions bilaterally. Endotracheal tube, nasogastric tube, l eft subclavian central line and left-sided chest tubes are unchanged in position. No definite pneumot horax. Left-sided rib fractures. CONCLUSION: Worsening hazy opacities greater in the left lung. Probable small pleural effusions. Sebastian Zimmerman MD on November 20, 2017 at 6:10 Board Certified Radiologist. This report was verified electronically.
[2017-11-20] MEDS: CHLORHEXIDINE 0.12% (ORAL KIT) 15 ML CUP MT SCH ×2 (08:03→20:22)
[2017-11-20] MEDS: PANTOPRAZOLE SODIUM 40 MG VIAL IVP SCH (08:03)
[2017-11-20] MEDS: MAGNESIUM HYDROXIDE SUSP 30 ML CUP PO SCH ×2 (08:03→20:23)
[2017-11-20] MEDS: SODIUM CHLORIDE 0.9% FLUSH 10 ML FLUSH IV FLUSH SCH ×2 (08:04→20:39)
[2017-11-20] MEDS: DOCUSATE SODIUM 50 MG/SENNA 8.6 MG TAB PO SCH ×2 (08:04→20:23)
[2017-11-20] MEDS: levETIRAcetam INJ 500 MG in SODIUM CHLORIDE 0.9% INJ 100 ML IV SCH ×2 (08:04→20:38)
[2017-11-20] MEDS: PROPOFOL 1000 MG/100 ML INJ 100 ML IV PRN ×2 (08:22→15:30)
[2017-11-20] MEDS: fentaNYL DRIP 250 ML IV PRN (08:22)
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
[2017-11-20] MEDS ORDERED: oxyCODONE/ACETAMINOPHEN 10 MG/325 MG TAB PO PRN (11:15)
[2017-11-20] MEDS ORDERED: oxyCODONE/ACETAMINOPHEN 5 MG/325 MG TAB PO PRN (11:15)
[2017-11-20] MEDS ORDERED: VANCOMYCIN INJ 1,000 MG in SODIUM CHLOR 0.9% 250 ML INJ 250 ML IV SCH (11:15)
[2017-11-20] MEDS ORDERED: Vancomycin Consult Pharmacy 1 EA OTHER SCH (11:15)
[2017-11-20] MEDS: LACTULOSE SYRUP 20 GM/30 ML CUP PO SCH (11:29)
[2017-11-20] MEDS: ASPIRIN 81 MG CHEW TAB CHEW SCH (13:17)
[2017-11-20] MEDS: VANCOMYCIN INJ 1,250 MG in SODIUM CHLOR 0.9% 250 ML INJ 250 ML IV SCH (13:17)
[2017-11-20] MEDS: LIDOCAINE HCL 5% PATCH T-DERMAL SCH (13:30)
--- NOTE | 2017-11-20 13:32 | HHI.PR ---
Neuropsych Emotional Emotional: UnabletoAssess: Emotional, Anxious/Fearful, Depressed/Sad, Hostile/ Resentful, Irritable/Angry/Frustrate, Labile, Constricted/Blunted Behavior Behavior: Intact: Impulsive/Agitated, Unable to Asses: Behavior, Coping/ Acceptance, Cooperative w/ Treatment, Motivation, Frustration Tolerance/[place], Suicidal/Homicidal Risk Cognitive Cognitive: Unable to Asses: Cognitive, Attention/Concentration, Confused/ Orientation, Insight/Awareness, Judgement/Problem-Solving, Memory Psychosocial Psychosocial: Unable to Asses: Psychosocial, Family/Other Adjustment, Realistic Expectation, Self-Esteem/Confidence Progress Notes/Response to Tx Contents of Sessions: Adjustment, Level of Consciousness Time with Patient: 15 minutes Premorbid psychological status Premorbid Cognitive, Emotional and Behavioral Status: Unable to Assess. The patient has high school years of education and an unknown work history prior to this injury. The patient has unknown psychiatric difficulties, as described above. Substance abuse history is significant. Behavioral Reactions of Patient and Family/Support System: Unable to Assess. The patients family is experiencing ongoing issues of adjustment given the nature of the injury, and this aspect of recovery will require ongoing monitoring. Emotional/Behavioral Status of Patient and Family/Support System: Unable to Assess. Pertinent issues, if appropriate to this patients clinical care, are described in detail above. Maximizing acute care outcome It is recommended that the patient be monitored for emergent behavioral impulsivity as the medical condition evolves. This patients neuropathological challenges may limit his rehabilitation potential going forward, and these challenges will require specialized therapeutic skills to maximize outcome. Additionally, the patients family is experiencing ongoing issues of adjustment given the traumatic nature of the injury, and they may benefit from ongoing psychological assistance. At this point in the recovery process, the patient does not have cognitive capacity as the patient is unable to understand a situation and its likely consequences, nor is he able to manipulate information rationally. Cognitive capacity will be assessed throughout the recovery process. Anticipated Problems Ongoing areas of concern will include behavioral impulsivity, lack of insight and judgment, which is expected to improve with time and treatment. Presently , the patient intubated and sedated. Given the severity of the patient's injuries it is my clinical opinion that this patient will be unable to return to any type of productive employment for at least one year, perhaps longer and likely never. This patient is not considered safe to discharge home without supervision. Treatment Plan This clinician will continue to follow with you throughout the course of this patients critical care treatment, and I will be available to meet with the patients family/support system to facilitate their understanding and the ongoing care of their family member. The goals of neuropsychological intervention shall be both educational and supportive to the family/support system as is deemed clinically appropriate. Ankush Infante Level: I:No response-total assistance Impression 57 year old male s/p [place] [facility] [place] Diagnosis: (1) Major neurocognitive disorder as late effect of traumatic brain injury with behavioral disturbance Progress Note Narrative PTD 7. The patient remains neurobehaviorally unchanged, and is sedated and intubated. He is [place]. I will follow. Samir Granado PhD Nov 20, 2017 1:32 pm
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
[2017-11-20] MEDS: FREE WATER G-TUBE SCH ×3 (14:45→23:30)
--- NOTE | 2017-11-20 15:10 | PD.ORT.PN ---
Subjective Subjective Remarks Patient is intubated. Left wrist splint is intact. Family member is present. RN at bedside states no interval changes orthopedically. Objective Vitals Vital Signs Date Time Temp Pulse Resp B/P (MAP) Pulse Ox O2 Delivery O2 Flow Rate FiO2 11/20/17 14:58 98 11/20/17 12:28 99 30 11/20/17 12:00 71 11/20/17 12:00 30 11/20/17 12:00 100.5 71 18 119/71 (87) 97 11/20/17 10:00 75 11/20/17 08:00 30 11/20/17 08:00 70 11/20/17 08:00 102.3 70 18 110/64 (79) 98 11/20/17 07:36 97 30 11/20/17 07:00 98 Mechanical Ventilator 30 11/20/17 06:00 68 11/20/17 04:00 30 11/20/17 04:00 72 11/20/17 04:00 100.1 72 18 119/71 (87) 97 11/20/17 03:37 96 30 11/20/17 02:00 62 11/20/17 00:09 98 30 11/20/17 00:00 30 11/20/17 00:00 101.6 66 18 106/63 (77) 98 11/20/17 00:00 66 11/19/17 22:00 60 11/19/17 20:00 99.9 70 18 114/67 (83) 100 11/19/17 20:00 30 11/19/17 20:00 70 11/19/17 19:52 100 30 11/19/17 19:00 100 Mechanical Ventilator 30 11/19/17 18:00 62 11/19/17 17:34 100 30 11/19/17 16:00 30 11/19/17 16:00 69 11/19/17 16:00 98.8 62 18 108/70 (83) 95 I/O 11/19/17 11/19/17 11/19/17 11/20/17 11/20/17 11/20/17 07:00 15:00 23:00 07:00 15:00 23:00 Intake Total 100 ml 1405 ml 1138 ml 1353 ml Output Total 760 ml 225 ml 875 ml 875 ml Balance -660 ml 1180 ml 263 ml 478 ml Intake IV Total 100 ml 105 ml 924 ml 731 ml Tube Feeding 94 ml 542 ml Tube Irrigant 120 ml 80 ml Other 1300 ml Output Urine Total 750 ml 200 ml 875 ml 875 ml Gastric Drainage Total 0 ml Chest Tube Drainage Total 10 ml 0 ml Estimated Blood Loss 25 ml # Bowel Movements 0 0 0 Result Diagram: 11/20/176 11/20/17 0406 Imaging Last 24 hours Impressions Chest X-Ray 11/19/17 0600 Signed Impressions: Service Date/Time: Sunday, November 19, 2017 05:07 - CONCLUSION: Improving bibasilar densities. No pneumothorax. Sebastian Zimmerman MD Objective Remarks Intubated, unresponsive NAD LUE Short arm splint intact, mild swelling fingers, no erythema Good warmth, Cap refill less than 2 secs Assessment & Plan Ortho Post Op Day #: 1 Problem List: Assessment and Plan pod#1 s/p ORIF left wrist Ortho stable. Continue splint. Keep dry. NonWBing when awake, lucid. Pain control as needed. Will follow peripherally. Sutures will not need to be removed until postop week 3. Felisa Roberts Nov 20, 2017 15:10
--- NOTE | 2017-11-20 15:13 | RADRPT ---
EXAM DATE/TIME: 11/20/2017 14:24 [facility] COMPARISON: CT BRAIN W/O CONTRAST, November 15, 2017, 16:39. INDICATIONS : Stroke. Right upper extremity weakness. MEDICAL HISTORY : None. SURGICAL HISTORY : Splenectomy. Fusion, thoracic. Left wrist. ENCOUNTER: Subsequent ACUITY: 1 week PAIN SCORE: Nonresponsive. LOCATION: head. TECHNIQUE: Multiplanar, multisequence MRI of the brain was performed without contrast. FINDINGS: CEREBRUM: The ventricles are normal for age. No evidence of midline shift, mass lesion, hemorrhage. The pituit nick gland and suprasellar cistern are normal in configuration. There is a tiny right sided subdural h ematoma overlying the right occipital lobe. There is approximately 3 mm of separation. WHITE MATTER: No significant signal abnormalities are seen in the white matter. POSTERIOR FOSSA: Multiple acute infarctions are seen involving both cerebral hemispheres. The largest area of infarcti on measures approximately 3.1 x 2.3 cm involving the posterior left cerebellar hemisphere. Smaller in farcts are noted in the right cerebellar hemisphere. The midbrain is within normal limits without foc al infarction. DIFFUSION IMAGING: There are multiple areas of restricted diffusion involving the cerebellar hemispheres bilaterally samia racteristic of areas of focal acute infarction. Also, there is are two tiny areas of restricted diffu anna high along the right cerebral vertex. This may have been associated with the right pressure bartolo tor. Otherwise, the rest of the cerebral hemispheres are grossly unremarkable. EXTRACRANIAL: The visualized portions of the orbits and paranasal sinuses are unremarkable. CONCLUSION: 1. 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 2. 2 tiny focal infarct are seen along the high right cerebral vertex. 3. Tiny right subdural hematoma along the right occipital lobe with 3 mm of separation. Abbe Bernard MD on November 20, 2017 at 15:04 Board Certified Radiologist. This report was verified electronically.
[2017-11-20] MEDS: HEPARIN SODIUM - SQ 10,000 UNITS/ML VIAL SQ SCH ×2 (15:30→20:39)
[2017-11-20] MEDS: METHOCARBAMOL 500 MG TAB PO SCH ×2 (15:30→20:38)
[2017-11-20] MEDS: CEFEPIME INJ 1,000 MG in SODIUM CHLORIDE 0.9% INJ 100 ML IV SCH (16:01)
[2017-11-20] MEDS: REMOVE OLD LIDOCAINE PATCH T-DERMAL SCH (21:00)
[2017-11-21] VITALS (17 sets, daily range): BP systolic 96–136; BP diastolic 59–73; PULSE 60–87; RESP 10–22; TEMP 98.2–101.6; O2SAT 91–100
[2017-11-21] MEDS: LACTATED RINGER'S 1000 ML INJ 1,000 ML IV SCH ×2 (00:33→10:41)
[2017-11-21] MEDS: VANCOMYCIN INJ 1,250 MG in SODIUM CHLOR 0.9% 250 ML INJ 250 ML IV SCH (04:27)
[2017-11-21 04:58] LABS: AUTOMATED NEUTROPHIL # 13.9 TH/MM3 (1.8-7.7); BASOPHIL # 0.2 TH/MM3 (0-0.2); EOSINOPHIL # 0.9 TH/MM3 (0-0.4); EOSINOPHIL % 4.6 % (0.0-4.0); HEMATOCRIT 24.3 % (39.0-51.0); HEMOGLOBIN 7.9 GM/DL (13.0-17.0); LYMPH % 11.3 % (9.0-44.0); LYMPHOCYTE # 2.1 TH/MM3 (1.0-4.8); MEAN CELL VOLUME 91.2 FL (80.0-100.0); MEAN CORPUSCULAR HEMOGLOBIN 29.5 PG (27.0-34.0); MEAN CORPUSCULAR HGB CONC 32.4 % (32.0-36.0); MEAN PLATELET VOLUME 7.6 FL (7.0-11.0); MONO % 7.6 % (0.0-8.0); MONOCYTE # 1.4 TH/MM3 (0-0.9); NEUT % 75.5 % (16.0-70.0); PLATELET COUNT 643 TH/MM3 (150-450); RED BLOOD COUNT 2.66 MIL/MM3 (4.50-5.90); RED CELL DISTRIBUTION WIDTH 16.3 % (11.6-17.2); WHITE BLOOD COUNT 18.5 TH/MM3 (4.0-11.0)
[2017-11-21] MEDS: CEFEPIME INJ 1,000 MG in SODIUM CHLORIDE 0.9% INJ 100 ML IV SCH ×2 (05:29→18:12)
[2017-11-21] MEDS: METHOCARBAMOL 500 MG TAB PO SCH ×3 (05:29→22:26)
[2017-11-21] MEDS: FREE WATER G-TUBE SCH ×3 (05:29→18:00)
[2017-11-21] MEDS: HEPARIN SODIUM - SQ 10,000 UNITS/ML VIAL SQ SCH ×3 (05:30→22:25)
[2017-11-21 05:33] LABS: ALBUMIN 1.6 GM/DL (3.4-5.0); BICARBONATE 27.7 MEQ/L (21.0-32.0); CALCIUM 7.4 MG/DL (8.5-10.1); CALCIUM-PROTEIN CORRECTED 8.5 MG/DL (8.5-10.1); CREATININE 0.95 MG/DL (0.60-1.30); TOTAL BILIRUBIN ADULT 0.4 MG/DL (0.2-1.0); TOTAL PROTEIN 5.1 GM/DL (6.4-8.2)
[2017-11-21] MEDS: fentaNYL DRIP 250 ML IV PRN ×2 (06:17→20:19)
--- NOTE | 2017-11-21 06:32 | RADRPT ---
EXAM DATE/TIME: 11/21/2017 05:38 [facility] COMPARISON: CHEST SINGLE AP, November 20, 2017, 5:17. INDICATIONS : Short of breath. MEDICAL HISTORY : None. SURGICAL HISTORY : Fusion, thoracic ENCOUNTER: Subsequent ACUITY: 1 week PAIN SCORE: Non-responsive. LOCATION: Bilateral chest FINDINGS: A single view of the chest demonstrates endotracheal tube, nasogastric tube, left chest tube and left Vas-Cath in good position, stable. Stable bilateral mostly basilar airspace disease and pleural effu sions. CONCLUSION: 1. Stable exam since November 20. Left chest tube without significant pneumothorax. Josué Mathur MD on November 21, 2017 at 6:29 Board Certified Radiologist. This report was verified electronically.
[2017-11-21] MEDS: LACTULOSE SYRUP 20 GM/30 ML CUP PO SCH (07:36)
[2017-11-21] MEDS: MAGNESIUM HYDROXIDE SUSP 30 ML CUP PO SCH ×2 (07:36→20:18)
[2017-11-21] MEDS: DOCUSATE SODIUM 50 MG/SENNA 8.6 MG TAB PO SCH ×2 (07:36→20:17)
[2017-11-21] MEDS: CHLORHEXIDINE 0.12% (ORAL KIT) 15 ML CUP MT SCH ×2 (08:00→20:00)
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
[2017-11-21] MEDS: PANTOPRAZOLE SODIUM 40 MG VIAL IVP SCH (09:55)
[2017-11-21] MEDS: ASPIRIN 81 MG CHEW TAB CHEW SCH (09:55)
[2017-11-21] MEDS: levETIRAcetam INJ 500 MG in SODIUM CHLORIDE 0.9% INJ 100 ML IV SCH ×2 (09:55→20:17)
[2017-11-21] MEDS: SODIUM CHLORIDE 0.9% FLUSH 10 ML FLUSH IV FLUSH SCH ×2 (09:55→20:18)
[2017-11-21] MEDS: LIDOCAINE HCL 5% PATCH T-DERMAL SCH (09:56)
[2017-11-21] MEDS ORDERED: LACTATED RINGER'S 1000 ML INJ 1,000 ML IV ONE (10:15)
[2017-11-21] MEDS: PROPRANOLOL HCL 10 MG TAB PO SCH ×3 (12:56→22:26)
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
[2017-11-21] MEDS: PROPOFOL 1000 MG/100 ML INJ 100 ML IV PRN (14:10)
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
[2017-11-21] MEDS: VANCOMYCIN INJ 1,750 MG in SODIUM CHLORID 0.9% 500 ML INJ 500 ML IV SCH (16:14)
[2017-11-21] MEDS: REMOVE OLD LIDOCAINE PATCH T-DERMAL SCH (20:18)
[2017-11-22] VITALS (15 sets, daily range): BP systolic 107–153; BP diastolic 70–91; PULSE 61–89; RESP 15–22; TEMP 97.4–100.6; O2SAT 95–100
[2017-11-22] MEDS: LACTATED RINGER'S 1000 ML INJ 1,000 ML IV SCH ×2 (00:05→17:05)
[2017-11-22] MEDS: VANCOMYCIN INJ 1,750 MG in SODIUM CHLORID 0.9% 500 ML INJ 500 ML IV SCH ×2 (03:52→14:54)
[2017-11-22 04:39] LABS: AUTOMATED NEUTROPHIL # 15.8 TH/MM3 (1.8-7.7); BASOPHIL # 0.1 TH/MM3 (0-0.2); BASOPHIL % 0.5 % (0.0-2.0); EOSINOPHIL % 4.6 % (0.0-4.0); HEMATOCRIT 23.3 % (39.0-51.0); HEMOGLOBIN 7.5 GM/DL (13.0-17.0); LYMPH % 12.2 % (9.0-44.0); LYMPHOCYTE # 2.6 TH/MM3 (1.0-4.8); MEAN CELL VOLUME 92.2 FL (80.0-100.0); MEAN CORPUSCULAR HEMOGLOBIN 29.7 PG (27.0-34.0); MEAN CORPUSCULAR HGB CONC 32.2 % (32.0-36.0); MEAN PLATELET VOLUME 8.2 FL (7.0-11.0); MONOCYTE # 1.7 TH/MM3 (0-0.9); NEUT % 74.7 % (16.0-70.0); PLATELET COUNT 677 TH/MM3 (150-450); RED BLOOD COUNT 2.52 MIL/MM3 (4.50-5.90); RED CELL DISTRIBUTION WIDTH 15.6 % (11.6-17.2); WHITE BLOOD COUNT 21.2 TH/MM3 (4.0-11.0)
[2017-11-22 05:00] LABS: CALCIUM 7.6 MG/DL (8.5-10.1); CREATININE 1.02 MG/DL (0.60-1.30)
--- NOTE | 2017-11-22 05:23 | RADRPT ---
EXAM DATE/TIME: 11/22/2017 04:08 [facility] COMPARISON: CHEST SINGLE AP, November 21, 2017, 5:38. INDICATIONS : Pulm contusion. MEDICAL HISTORY : None. SURGICAL HISTORY : Fusion, thoracic ENCOUNTER: Subsequent ACUITY: 1 week PAIN SCORE: Non-responsive. LOCATION: Bilateral chest FINDINGS: Basilar predominant bilateral consolidation and small to moderate pleural effusions are again noted a nd not significantly changed. Left chest tube remains in place. No perceptible pneumothorax. Surgical changes of the midthoracic spine again noted. Heart size stable, mildly enlarged. Endotracheal tube tip is approximately 3.5 cm above the crissy. Nasogastric tube courses into the sto mach. There is a left subclavian central venous catheter again seen, tip in the superior vena cava. CONCLUSION: No significant change bibasilar consolidation and small to moderate pleural effusions. Lines and tube s unchanged, including a left chest tube. No pneumothorax seen. López Perez MD on November 22, 2017 at 5:20 Board Certified Radiologist. This report was verified electronically.
[2017-11-22] MEDS: HEPARIN SODIUM - SQ 10,000 UNITS/ML VIAL SQ SCH ×3 (05:50→21:41)
[2017-11-22] MEDS: PROPRANOLOL HCL 10 MG TAB PO SCH ×4 (05:50→21:41)
[2017-11-22] MEDS: CEFEPIME INJ 1,000 MG in SODIUM CHLORIDE 0.9% INJ 100 ML IV SCH ×2 (05:50→17:05)
[2017-11-22] MEDS: METHOCARBAMOL 500 MG TAB PO SCH ×3 (05:50→21:41)
[2017-11-22] MEDS: FREE WATER G-TUBE SCH ×4 (06:24→17:30)
[2017-11-22] MEDS: CHLORHEXIDINE 0.12% (ORAL KIT) 15 ML CUP MT SCH ×2 (08:00→20:41)
--- NOTE | 2017-11-22 08:35 | HHI.PR ---
Neuropsych Emotional Emotional: UnabletoAssess: Emotional, Anxious/Fearful, Depressed/Sad, Hostile/ Resentful, Irritable/Angry/Frustrate, Labile, Constricted/Blunted Behavior Behavior: Intact: Impulsive/Agitated, Unable to Asses: Behavior, Coping/ Acceptance, Cooperative w/ Treatment, Motivation, Frustration Tolerance/[place], Suicidal/Homicidal Risk Cognitive Cognitive: Unable to Asses: Cognitive, Attention/Concentration, Confused/ Orientation, Insight/Awareness, Judgement/Problem-Solving, Memory Psychosocial Psychosocial: Unable to Asses: Psychosocial, Family/Other Adjustment, Realistic Expectation, Self-Esteem/Confidence Progress Notes/Response to Tx Contents of Sessions: Adjustment, Level of Consciousness Premorbid psychological status Premorbid Cognitive, Emotional and Behavioral Status: Unable to Assess. The patient has high school years of education and an unknown work history prior to this injury. The patient has unknown psychiatric difficulties, as described above. Substance abuse history is significant. Behavioral Reactions of Patient and Family/Support System: Unable to Assess. The patients family is experiencing ongoing issues of adjustment given the nature of the injury, and this aspect of recovery will require ongoing monitoring. Emotional/Behavioral Status of Patient and Family/Support System: Unable to Assess. Pertinent issues, if appropriate to this patients clinical care, are described in detail above. Maximizing acute care outcome It is recommended that the patient be monitored for emergent behavioral impulsivity as the medical condition evolves. This patients neuropathological challenges may limit his rehabilitation potential going forward, and these challenges will require specialized therapeutic skills to maximize outcome. Additionally, the patients family is experiencing ongoing issues of adjustment given the traumatic nature of the injury, and they may benefit from ongoing psychological assistance. At this point in the recovery process, the patient does not have cognitive capacity as the patient is unable to understand a situation and its likely consequences, nor is he able to manipulate information rationally. Cognitive capacity will be assessed throughout the recovery process. Anticipated Problems Ongoing areas of concern will include behavioral impulsivity, lack of insight and judgment, which is expected to improve with time and treatment. Presently , the patient intubated and sedated. Given the severity of the patient's injuries it is my clinical opinion that this patient will be unable to return to any type of productive employment for at least one year, perhaps longer and likely never. This patient is not considered safe to discharge home without supervision. Treatment Plan This clinician will continue to follow with you throughout the course of this patients critical care treatment, and I will be available to meet with the patients family/support system to facilitate their understanding and the ongoing care of their family member. The goals of neuropsychological intervention shall be both educational and supportive to the family/support system as is deemed clinically appropriate. [facility] Level: III:Localized response-total assist Impression 57 year old [place] s/p [place] [facility] [place] Diagnosis: (1) Major neurocognitive disorder as late effect of traumatic brain injury with behavioral disturbance Progress Note Narrative PTD 9. The patient is improving from a neurobehavioral standpoint, more restlessness but controlled. His propranolol was held yesterday for BP issues. ABS is ordered. He has a PRN Haldol (not needed). He is an emerging [place] IV. As such, trauma team added Seroquel 50 BID. I will follow. Samir Granado PhD Nov 22, 2017 8:35 am
[2017-11-22] MEDS: DOCUSATE SODIUM 50 MG/SENNA 8.6 MG TAB PO SCH ×2 (08:43→20:40)
[2017-11-22] MEDS: ASPIRIN 81 MG CHEW TAB CHEW SCH (08:44)
[2017-11-22] MEDS: LIDOCAINE HCL 5% PATCH T-DERMAL SCH (08:45)
[2017-11-22] MEDS: MAGNESIUM HYDROXIDE SUSP 30 ML CUP PO SCH ×2 (08:45→20:43)
[2017-11-22] MEDS: PANTOPRAZOLE SODIUM 40 MG VIAL IVP SCH (08:45)
[2017-11-22] MEDS: LACTULOSE SYRUP 20 GM/30 ML CUP PO SCH (08:45)
[2017-11-22] MEDS: SODIUM CHLORIDE 0.9% FLUSH 10 ML FLUSH IV FLUSH SCH ×2 (08:46→20:43)
[2017-11-22] MEDS: levETIRAcetam INJ 500 MG in SODIUM CHLORIDE 0.9% INJ 100 ML IV SCH ×2 (08:46→20:42)
[2017-11-22] MEDS: HALOPERIDOL LACTATE 5 MG/ML AMP IV PUSH PRN ×2 (09:11→20:41)
[2017-11-22] MEDS: QUEtiapine FUMARATE 25 MG TAB PO SCH ×2 (12:15→20:40)
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
[2017-11-22] MEDS: PROPOFOL 1000 MG/100 ML INJ 100 ML IV PRN (22:00)
[2017-11-23] VITALS (15 sets, daily range): BP systolic 120–158; BP diastolic 61–86; PULSE 58–88; RESP 18–21; TEMP 97.8–101; O2SAT 96–99
[2017-11-23] MEDS ORDERED: PHARMACY ORDERED LAB ONE (02:45)
[2017-11-23] MEDS: VANCOMYCIN INJ 1,750 MG in SODIUM CHLORID 0.9% 500 ML INJ 500 ML IV SCH (03:12)
[2017-11-23] MEDS: CEFEPIME INJ 1,000 MG in SODIUM CHLORIDE 0.9% INJ 100 ML IV SCH (04:54)
[2017-11-23] MEDS: ACETAMINOPHEN 325 MG TAB PO PRN (04:55)
[2017-11-23] MEDS: FREE WATER G-TUBE SCH ×4 (05:07→18:00)
[2017-11-23 05:08] LABS: BASOPHIL # 0.2 TH/MM3 (0-0.2); BASOPHIL % 0.8 % (0.0-2.0); EOSINOPHIL # 0.6 TH/MM3 (0-0.4); EOSINOPHIL % 2.9 % (0.0-4.0); HEMATOCRIT 23.2 % (39.0-51.0); HEMOGLOBIN 7.5 GM/DL (13.0-17.0); LYMPH % 11.9 % (9.0-44.0); LYMPHOCYTE # 2.7 TH/MM3 (1.0-4.8); MEAN CELL VOLUME 90.7 FL (80.0-100.0); MEAN CORPUSCULAR HEMOGLOBIN 29.3 PG (27.0-34.0); MEAN CORPUSCULAR HGB CONC 32.3 % (32.0-36.0); MEAN PLATELET VOLUME 8.3 FL (7.0-11.0); MONO % 8.5 % (0.0-8.0); MONOCYTE # 1.9 TH/MM3 (0-0.9); NEUT % 75.9 % (16.0-70.0); PLATELET COUNT 692 TH/MM3 (150-450); RED BLOOD COUNT 2.56 MIL/MM3 (4.50-5.90); RED CELL DISTRIBUTION WIDTH 15.4 % (11.6-17.2); WHITE BLOOD COUNT 22.4 TH/MM3 (4.0-11.0)
[2017-11-23] MEDS: METHOCARBAMOL 500 MG TAB PO SCH (05:08)
[2017-11-23] MEDS: PROPRANOLOL HCL 10 MG TAB PO SCH ×3 (05:08→21:31)
[2017-11-23] MEDS: HEPARIN SODIUM - SQ 10,000 UNITS/ML VIAL SQ SCH (05:09)
[2017-11-23 05:27] LABS: BICARBONATE 26.6 MEQ/L (21.0-32.0); CALCIUM 7.7 MG/DL (8.5-10.1); CREATININE 0.85 MG/DL (0.60-1.30)
[2017-11-23] MEDS: CHLORHEXIDINE 0.12% (ORAL KIT) 15 ML CUP MT SCH ×2 (08:00→20:00)
[2017-11-23] MEDS: DOCUSATE SODIUM 50 MG/SENNA 8.6 MG TAB PO SCH ×2 (09:00→21:32)
[2017-11-23] MEDS: LACTULOSE SYRUP 20 GM/30 ML CUP PO SCH (09:00)
[2017-11-23] MEDS: ASPIRIN 81 MG CHEW TAB CHEW SCH (09:00)
[2017-11-23] MEDS: QUEtiapine FUMARATE 25 MG TAB PO SCH (09:00)
[2017-11-23] MEDS: levETIRAcetam INJ 500 MG in SODIUM CHLORIDE 0.9% INJ 100 ML IV SCH (09:00)
[2017-11-23] MEDS: MAGNESIUM HYDROXIDE SUSP 30 ML CUP PO SCH ×2 (09:00→21:33)
[2017-11-23] MEDS: SODIUM CHLORIDE 0.9% FLUSH 10 ML FLUSH IV FLUSH SCH ×2 (09:00→21:34)
[2017-11-23] MEDS: FAMOTIDINE 20 MG TAB PO SCH ×2 (09:15→21:32)
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
[2017-11-23] MEDS: PROPOFOL 1000 MG/100 ML INJ 100 ML IV PRN ×3 (12:09→21:30)
[2017-11-23] MEDS: ENOXAPARIN SODIUM 40 MG/0.4 ML SYRINGE SQ SCH (12:13)
[2017-11-23] MEDS: LEVOFLOXACIN 750 MG PREMIX INJ 150 ML IV SCH (14:49)
[2017-11-23 18:52] LABS: BACTERIA, URINE RARE /hpf; BILIRUBIN, URINE NEG (NEG); BLOOD, URINE NEG (NEG); GLUCOSE,URINE NEG (NEG); KETONE, URINE NEG (NEG); NITRITE,URINE NEG (NEG); SQUAMOUS EPITHELIAL CELL URINE <1 /hpf (0-5); URINE COLOR YELLOW (YELLW/STRAW); URINE LEUKOCYTE ESTERASE NEG (NEG)
[2017-11-23] MEDS: QUEtiapine FUMARATE 100 MG TAB PO SCH (21:32)
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
[2017-11-24] VITALS (17 sets, daily range): BP systolic 113–179; BP diastolic 66–98; PULSE 61–76; RESP 18–25; TEMP 98–99.5; O2SAT 97–100
[2017-11-24 05:18] LABS: AUTOMATED NEUTROPHIL # 18.1 TH/MM3 (1.8-7.7); BASOPHIL % 0.2 % (0.0-2.0); EOSINOPHIL # 0.7 TH/MM3 (0-0.4); EOSINOPHIL % 2.9 % (0.0-4.0); HEMATOCRIT 24.7 % (39.0-51.0); LYMPH % 12.9 % (9.0-44.0); MEAN CELL VOLUME 90.3 FL (80.0-100.0); MEAN CORPUSCULAR HEMOGLOBIN 29.2 PG (27.0-34.0); MEAN CORPUSCULAR HGB CONC 32.3 % (32.0-36.0); MEAN PLATELET VOLUME 8.9 FL (7.0-11.0); MONO % 7.5 % (0.0-8.0); MONOCYTE # 1.8 TH/MM3 (0-0.9); NEUT % 76.5 % (16.0-70.0); PLATELET COUNT 701 TH/MM3 (150-450); RED BLOOD COUNT 2.74 MIL/MM3 (4.50-5.90); RED CELL DISTRIBUTION WIDTH 15.3 % (11.6-17.2); WHITE BLOOD COUNT 23.6 TH/MM3 (4.0-11.0)
[2017-11-24 05:34] LABS: BICARBONATE 23.5 MEQ/L (21.0-32.0); CALCIUM 8.2 MG/DL (8.5-10.1); CREATININE 0.86 MG/DL (0.60-1.30)
[2017-11-24] MEDS: FREE WATER G-TUBE SCH ×4 (06:00→21:10)
[2017-11-24] MEDS: PROPRANOLOL HCL 10 MG TAB PO SCH ×3 (06:00→21:10)
[2017-11-24] MEDS: PROPOFOL 1000 MG/100 ML INJ 100 ML IV PRN ×3 (06:10→18:23)
[2017-11-24] MEDS: SODIUM CHLORIDE 0.9% FLUSH 10 ML FLUSH IV FLUSH SCH ×2 (08:00→20:42)
[2017-11-24] MEDS: CHLORHEXIDINE 0.12% (ORAL KIT) 15 ML CUP MT SCH ×2 (08:00→20:42)
[2017-11-24] MEDS: QUEtiapine FUMARATE 100 MG TAB PO SCH ×2 (08:05→20:41)
[2017-11-24] MEDS: DOCUSATE SODIUM 50 MG/SENNA 8.6 MG TAB PO SCH ×2 (08:05→20:42)
[2017-11-24] MEDS: MAGNESIUM HYDROXIDE SUSP 30 ML CUP PO SCH ×2 (08:05→20:42)
[2017-11-24] MEDS: FAMOTIDINE 20 MG TAB PO SCH ×2 (08:05→20:41)
[2017-11-24] MEDS: ASPIRIN 325 MG TAB PO SCH (08:05)
[2017-11-24] MEDS: LACTULOSE SYRUP 20 GM/30 ML CUP PO SCH (08:05)
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
[2017-11-24] MEDS: LEVOFLOXACIN 750 MG PREMIX INJ 150 ML IV SCH (12:55)
[2017-11-24] MEDS: ENOXAPARIN SODIUM 40 MG/0.4 ML SYRINGE SQ SCH (12:55)
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
[2017-11-25] VITALS (16 sets, daily range): BP systolic 132–177; BP diastolic 78–88; PULSE 56–102; RESP 18–33; TEMP 97.6–101.1; O2SAT 94–100
[2017-11-25] MEDS: PROPOFOL 1000 MG/100 ML INJ 100 ML IV PRN (04:47)
[2017-11-25] MEDS: FREE WATER G-TUBE SCH ×2 (05:13→22:16)
[2017-11-25] MEDS: PROPRANOLOL HCL 10 MG TAB PO SCH ×3 (05:29→22:16)
[2017-11-25 06:38] LABS: AUTOMATED NEUTROPHIL # 16.4 TH/MM3 (1.8-7.7); BASOPHIL # 0.2 TH/MM3 (0-0.2); EOSINOPHIL # 0.8 TH/MM3 (0-0.4); EOSINOPHIL % 3.7 % (0.0-4.0); HEMATOCRIT 26.6 % (39.0-51.0); HEMOGLOBIN 8.5 GM/DL (13.0-17.0); LYMPH % 8.9 % (9.0-44.0); LYMPHOCYTE # 1.8 TH/MM3 (1.0-4.8); MEAN CORPUSCULAR HEMOGLOBIN 28.9 PG (27.0-34.0); MEAN CORPUSCULAR HGB CONC 32.1 % (32.0-36.0); MONOCYTE # 1.4 TH/MM3 (0-0.9); NEUT % 79.4 % (16.0-70.0); PLATELET COUNT 898 TH/MM3 (150-450); RED BLOOD COUNT 2.95 MIL/MM3 (4.50-5.90); RED CELL DISTRIBUTION WIDTH 15.3 % (11.6-17.2); WHITE BLOOD COUNT 20.6 TH/MM3 (4.0-11.0)
--- NOTE | 2017-11-25 06:55 | RADRPT ---
EXAM DATE/TIME: 11/25/2017 04:34 [facility] COMPARISON: CHEST SINGLE AP, November 22, 2017, 4:08. INDICATIONS : Short of breath, pulmonary contusion MEDICAL HISTORY : trauma SURGICAL HISTORY : thoracic spine fusion ENCOUNTER: Subsequent ACUITY: 1 week PAIN SCORE: Non-responsive. LOCATION: Bilateral chest FINDINGS: Endotracheal tube, nasogastric tube and left thoracostomy tube remain in place. There has been remova l of a dialysis catheter. Hazy bibasilar parenchymal opacity persists, right worse than left. Nodular radiodensity overlying the upper lung villarreal bilaterally is felt to be artifactual. The cardiac cont ours are grossly satisfactory accounting for differences in technique and projection. CONCLUSION: Probable slight interval improvement in aeration López Rodrigues MD on November 25, 2017 at 6:51 Board Certified Radiologist. This report was verified electronically.
[2017-11-25 07:08] LABS: BICARBONATE 24.9 MEQ/L (21.0-32.0); CREATININE 0.81 MG/DL (0.60-1.30)
[2017-11-25] MEDS: CHLORHEXIDINE 0.12% (ORAL KIT) 15 ML CUP MT SCH ×2 (08:00→22:16)
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
[2017-11-25] MEDS: DOCUSATE SODIUM 50 MG/SENNA 8.6 MG TAB PO SCH ×2 (09:00→22:17)
[2017-11-25] MEDS: LACTULOSE SYRUP 20 GM/30 ML CUP PO SCH (09:00)
[2017-11-25] MEDS: FAMOTIDINE 20 MG TAB PO SCH ×2 (09:29→22:17)
[2017-11-25] MEDS: QUEtiapine FUMARATE 100 MG TAB PO SCH ×2 (09:30→22:17)
[2017-11-25] MEDS: ASPIRIN 325 MG TAB PO SCH (09:30)
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
[2017-11-25] MEDS: DEXMEDETOMIDINE INJ 200 MCG in SODIUM CHLORIDE 0.9% INJ 50 ML IV PRN ×2 (11:41→12:57)
[2017-11-25] MEDS: ENOXAPARIN SODIUM 40 MG/0.4 ML SYRINGE SQ SCH (11:42)
[2017-11-25] MEDS: LEVOFLOXACIN 750 MG TAB PO SCH (13:00)
[2017-11-25] MEDS: MAGNESIUM HYDROXIDE SUSP 30 ML CUP PO SCH (21:00)
[2017-11-25] MEDS ORDERED: DEXMEDETOMIDINE INJ 1,000 MCG in SODIUM CHLOR 0.9% 250 ML INJ 240 ML IV PRN (22:15)
[2017-11-25] MEDS: SODIUM CHLORIDE 0.9% FLUSH 10 ML FLUSH IV FLUSH SCH (22:16)
[2017-11-26] VITALS (17 sets, daily range): BP systolic 108–176; BP diastolic 59–89; PULSE 57–98; RESP 18–26; TEMP 98.6–101.2; O2SAT 94–100
[2017-11-26] MEDS: FREE WATER G-TUBE SCH ×2 (05:20→14:00)
[2017-11-26] MEDS: PROPRANOLOL HCL 10 MG TAB PO SCH ×3 (05:20→21:12)
[2017-11-26 05:42] LABS: BASOPHIL # 0.3 TH/MM3 (0-0.2); BASOPHIL % 1.3 % (0.0-2.0); EOSINOPHIL # 0.5 TH/MM3 (0-0.4); EOSINOPHIL % 1.9 % (0.0-4.0); HEMATOCRIT 25.5 % (39.0-51.0); HEMOGLOBIN 8.3 GM/DL (13.0-17.0); LYMPHOCYTE # 2.1 TH/MM3 (1.0-4.8); MEAN CELL VOLUME 89.9 FL (80.0-100.0); MEAN CORPUSCULAR HEMOGLOBIN 29.4 PG (27.0-34.0); MEAN CORPUSCULAR HGB CONC 32.7 % (32.0-36.0); MEAN PLATELET VOLUME 8.7 FL (7.0-11.0); MONO % 7.1 % (0.0-8.0); MONOCYTE # 1.8 TH/MM3 (0-0.9); NEUT % 81.7 % (16.0-70.0); PLATELET COUNT 912 TH/MM3 (150-450); RED BLOOD COUNT 2.84 MIL/MM3 (4.50-5.90); RED CELL DISTRIBUTION WIDTH 15.5 % (11.6-17.2); WHITE BLOOD COUNT 25.7 TH/MM3 (4.0-11.0)
--- NOTE | 2017-11-26 05:48 | RADRPT ---
EXAM DATE/TIME: 11/26/2017 04:50 [facility] COMPARISON: CHEST SINGLE AP, November 25, 2017, 4:34. INDICATIONS : Status post chest tube removal. MEDICAL HISTORY : None. SURGICAL HISTORY : Thoracic spine fusion. ENCOUNTER: Subsequent ACUITY: 1 week PAIN SCORE: Non-responsive. LOCATION: Bilateral chest FINDINGS: Endotracheal tube and nasogastric tube remain in place. There is been removal of left thoracostomy tu be. No evidence of pneumothorax. There is hazy bilateral pleural parenchymal opacity in the lower dario g zones which is grossly unchanged. Cardiac contours are stable. CONCLUSION: No pneumothorax post chest tube removal López Rodrigues MD on November 26, 2017 at 5:45 Board Certified Radiologist. This report was verified electronically.
[2017-11-26 06:02] LABS: BICARBONATE 23.6 MEQ/L (21.0-32.0); CALCIUM 7.8 MG/DL (8.5-10.1); CREATININE 0.82 MG/DL (0.60-1.30)
[2017-11-26] MEDS: CHLORHEXIDINE 0.12% (ORAL KIT) 15 ML CUP MT SCH ×2 (08:00→20:00)
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
[2017-11-26] MEDS: LACTULOSE SYRUP 20 GM/30 ML CUP PO SCH (09:00)
[2017-11-26] MEDS: MAGNESIUM HYDROXIDE SUSP 30 ML CUP PO SCH ×2 (09:00→21:00)
[2017-11-26] MEDS: SODIUM CHLORIDE 0.9% FLUSH 10 ML FLUSH IV FLUSH SCH ×2 (09:00→21:12)
[2017-11-26] MEDS: DOCUSATE SODIUM 50 MG/SENNA 8.6 MG TAB PO SCH ×2 (09:00→21:00)
[2017-11-26] MEDS: QUEtiapine FUMARATE 100 MG TAB PO SCH ×2 (09:13→21:12)
[2017-11-26] MEDS: FAMOTIDINE 20 MG TAB PO SCH ×2 (09:14→21:12)
[2017-11-26] MEDS: ASPIRIN 325 MG TAB PO SCH (09:14)
[2017-11-26] MEDS: LEVOFLOXACIN 750 MG TAB PO SCH (09:15)
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
[2017-11-26] MEDS: ENOXAPARIN SODIUM 40 MG/0.4 ML SYRINGE SQ SCH (12:00)
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
[2017-11-26] MEDS ORDERED: Vancomycin Consult Pharmacy 1 EA OTHER SCH (15:15)
[2017-11-26] MEDS: MORPHINE SULFATE 4 MG/ML INJ IV PUSH PRN ×3 (17:25→23:36)
[2017-11-26] MEDS: VANCOMYCIN INJ 1,750 MG in SODIUM CHLORID 0.9% 500 ML INJ 500 ML IV SCH (18:08)
[2017-11-26] MEDS: SODIUM CHLORIDE 0.9% FLUSH 10 ML FLUSH IV FLUSH PRN (23:36)
[2017-11-27] VITALS (12 sets, daily range): BP systolic 144–167; BP diastolic 80–90; PULSE 71–88; RESP 11–25; TEMP 97.8–99.7; O2SAT 95–100
[2017-11-27] MEDS: MORPHINE SULFATE 4 MG/ML INJ IV PUSH PRN ×2 (02:53→08:17)
[2017-11-27] MEDS: SODIUM CHLORIDE 0.9% FLUSH 10 ML FLUSH IV FLUSH PRN (02:53)
[2017-11-27 04:52] LABS: AUTOMATED NEUTROPHIL # 18.8 TH/MM3 (1.8-7.7); BASOPHIL # 0.3 TH/MM3 (0-0.2); BASOPHIL % 1.4 % (0.0-2.0); EOSINOPHIL # 0.7 TH/MM3 (0-0.4); EOSINOPHIL % 2.8 % (0.0-4.0); HEMATOCRIT 27.5 % (39.0-51.0); LYMPH % 7.5 % (9.0-44.0); LYMPHOCYTE # 1.8 TH/MM3 (1.0-4.8); MEAN CELL VOLUME 89.3 FL (80.0-100.0); MEAN CORPUSCULAR HEMOGLOBIN 29.2 PG (27.0-34.0); MEAN CORPUSCULAR HGB CONC 32.7 % (32.0-36.0); MEAN PLATELET VOLUME 8.8 FL (7.0-11.0); MONO % 7.5 % (0.0-8.0); MONOCYTE # 1.7 TH/MM3 (0-0.9); NEUT % 80.8 % (16.0-70.0); PLATELET COUNT 1016 TH/MM3 (150-450); RED BLOOD COUNT 3.07 MIL/MM3 (4.50-5.90); RED CELL DISTRIBUTION WIDTH 15.4 % (11.6-17.2); WHITE BLOOD COUNT 23.3 TH/MM3 (4.0-11.0)
[2017-11-27 05:22] LABS: BICARBONATE 23.3 MEQ/L (21.0-32.0); CALCIUM 8.3 MG/DL (8.5-10.1); CREATININE 0.84 MG/DL (0.60-1.30)
[2017-11-27] MEDS: VANCOMYCIN INJ 1,750 MG in SODIUM CHLORID 0.9% 500 ML INJ 500 ML IV SCH ×2 (05:31→17:45)
[2017-11-27] MEDS: PROPRANOLOL HCL 10 MG TAB PO SCH ×3 (05:42→20:25)
--- NOTE | 2017-11-27 06:04 | RADRPT ---
EXAM DATE/TIME: 11/27/2017 04:43 [facility] COMPARISON: CHEST SINGLE AP, November 26, 2017, 4:50. INDICATIONS : Shortness of breath. MEDICAL HISTORY : None. SURGICAL HISTORY : Splenectomy. Fusion, thoracic. Left wrist ENCOUNTER: Subsequent ACUITY: 2 weeks PAIN SCORE: Non-responsive. LOCATION: Bilateral chest FINDINGS: There has been interval extubation and removal of nasogastric tube. Hazy bilateral primarily basilar pleural-parenchymal opacities persist unchanged. Cardiac contours are stable. CONCLUSION: Interval extubation. Stable aeration. López Rodrigues MD on November 27, 2017 at 6:01 Board Certified Radiologist. This report was verified electronically.
[2017-11-27] MEDS: CHLORHEXIDINE 0.12% (ORAL KIT) 15 ML CUP MT SCH ×2 (07:22→20:00)
[2017-11-27] MEDS: MAGNESIUM HYDROXIDE SUSP 30 ML CUP PO SCH ×2 (07:23→20:25)
[2017-11-27] MEDS: LACTULOSE SYRUP 20 GM/30 ML CUP PO SCH (07:23)
[2017-11-27] MEDS: QUEtiapine FUMARATE 25 MG TAB PO SCH (08:17)
[2017-11-27] MEDS: SODIUM CHLORIDE 0.9% FLUSH 10 ML FLUSH IV FLUSH SCH ×2 (08:17→20:25)
[2017-11-27] MEDS: ASPIRIN 325 MG TAB PO SCH (08:17)
[2017-11-27] MEDS: FAMOTIDINE 20 MG TAB PO SCH ×2 (08:17→20:24)
[2017-11-27] MEDS: DOCUSATE SODIUM 50 MG/SENNA 8.6 MG TAB PO SCH ×2 (08:17→20:25)
[2017-11-27] MEDS: LEVOFLOXACIN 750 MG TAB PO SCH (08:17)
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
[2017-11-27] MEDS ORDERED: MORPHINE SULFATE 4 MG/ML INJ IV PUSH PRN (09:45)
[2017-11-27] MEDS: ENOXAPARIN SODIUM 40 MG/0.4 ML SYRINGE SQ SCH (12:12)
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
[2017-11-27] MEDS: oxyCODONE/ACETAMINOPHEN 5 MG/325 MG TAB PO PRN ×2 (15:36→20:24)
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
[2017-11-27] MEDS: QUEtiapine FUMARATE 100 MG TAB PO SCH (20:24)
[2017-11-28] VITALS (14 sets, daily range): BP systolic 115–169; BP diastolic 61–98; PULSE 71–99; RESP 19–26; TEMP 97.7–101.1; O2SAT 85–98
[2017-11-28] MEDS ORDERED: PHARMACY ORDERED LAB ONE (05:45)
[2017-11-28] MEDS: PROPRANOLOL HCL 10 MG TAB PO SCH ×3 (06:14→23:02)
[2017-11-28] MEDS: VANCOMYCIN INJ 1,750 MG in SODIUM CHLORID 0.9% 500 ML INJ 500 ML IV SCH ×2 (06:15→18:33)
[2017-11-28 07:38] LABS: BICARBONATE 20.3 MEQ/L (21.0-32.0); CALCIUM 8.2 MG/DL (8.5-10.1); CREATININE 0.8 MG/DL (0.60-1.30)
[2017-11-28] MEDS: QUEtiapine FUMARATE 25 MG TAB PO SCH ×2 (08:37→23:03)
[2017-11-28] MEDS: FAMOTIDINE 20 MG TAB PO SCH ×2 (08:37→23:03)
[2017-11-28] MEDS: LEVOFLOXACIN 750 MG TAB PO SCH (08:37)
[2017-11-28] MEDS: LACTULOSE SYRUP 20 GM/30 ML CUP PO SCH (08:38)
[2017-11-28] MEDS: ASPIRIN 325 MG TAB PO SCH (08:38)
[2017-11-28] MEDS: DOCUSATE SODIUM 50 MG/SENNA 8.6 MG TAB PO SCH ×2 (08:38→23:04)
[2017-11-28] MEDS: CHLORHEXIDINE 0.12% (ORAL KIT) 15 ML CUP MT SCH ×2 (08:38→20:00)
[2017-11-28] MEDS: MAGNESIUM HYDROXIDE SUSP 30 ML CUP PO SCH ×2 (08:38→21:00)
[2017-11-28] MEDS: SODIUM CHLORIDE 0.9% FLUSH 10 ML FLUSH IV FLUSH SCH ×2 (08:38→23:03)
[2017-11-28] MEDS ORDERED: HALOPERIDOL LACTATE 5 MG/ML AMP IV PRN (10:00)
[2017-11-28] MEDS ORDERED: IOHEXOL 350 MG/ML 10 ML VIAL (for RAD DIAG) IVCONTRAST ONE (11:24)
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
--- NOTE | 2017-11-28 12:18 | RADRPT ---
EXAM DATE/TIME: 11/28/2017 11:18 [facility] COMPARISON: CT ABDOMEN & PELVIS W CONTRAST, November 13, 2017, 15:34. INDICATIONS : Status post splenectomy, elevated fevers IV CONTRAST: 93 cc Omnipaque 350 (iohexol) IV ORAL CONTRAST: No oral contrast ingested. RADIATION DOSE: 15.97 CTDIvol (mGy) ; Combined studies - Thorax/Abdomen/Pelvis MEDICAL HISTORY : None SURGICAL HISTORY : None. ENCOUNTER: Subsequent ACUITY: 2 weeks PAIN SCALE: 0/10 LOCATION: abdomen TECHNIQUE: Volumetric scanning of the abdomen and pelvis was performed. Using automated exposure control and ad justment of the mA and/or kV according to patient size, radiation dose was kept as low as reasonably achievable to obtain optimal diagnostic quality images. DICOM format image data is available electro nically for review and comparison. FINDINGS: Spleen removed in the interim. There is a fluid collection in the splenectomy bed and measures approx imately 4.3 x 10.1 x 9.7 cm. The fluid is mildly organized and with an approximately 3 mm thick enhan cing wall. Patchy non-enhancement again noted of the left kidney, similar to the posttraumatic study and mostly of the anterior portions of the organ. No associated fluid collection. Right kidney is normal. Liver, pancreas and adrenal glands are normal. No acute abnormalities are seen in the gastrointestina l tract. Interim thoracolumbar fusion procedure with posterior instrumentation. There is associated metallic s treak artifact. No definite acute complication demonstrated. CONCLUSION: 1. Splenectomy and thoracolumbar spine surgical changes in the interim as above. There is a nonspecif ic fluid collection in the splenectomy bed. 2. Patchy devascularization of the left kidney again seen and similar to the prior study. No associat ed fluid collection. López Perez MD on November 28, 2017 at 12:10 Board Certified Radiologist. This report was verified electronically.
--- NOTE | 2017-11-28 12:21 | RADRPT ---
EXAM DATE/TIME: 11/28/2017 11:18 [facility] COMPARISON: CT THORAX W CONTRAST, November 13, 2017, 15:34. INDICATIONS : Status post splenectomy, elevated fevers IV CONTRAST: 93 cc Omnipaque 350 (iohexol) IV ; Cumulative dose for multiple exams. RADIATION DOSE: 15.97 CTDIvol (mGy) ; Combined studies - Thorax/Abdomen/Pelvis MEDICAL HISTORY : None SURGICAL HISTORY : None. ENCOUNTER: Subsequent ACUITY: 2 weeks PAIN SCALE: 0/10 LOCATION: chest TECHNIQUE: Volumetric scanning of the chest was performed. Using automated exposure control and adjustment of t he mA and/or kV according to patient size, radiation dose was kept as low as reasonably achievable to obtain optimal diagnostic quality images. DICOM format image data is available electronically for review and comparison. Follow-up recommendations for detected pulmonary nodules are based at a minimum on nodule size and pa tient risk factors according to Fleischner Society Guidelines. FINDINGS: Small, simple/free-flowing bilateral pleural effusions are present and with associated mild dependent /compressive atelectasis of both lower lobes. No infectious pneumonia demonstrated. Heart and mediast inum are within normal limits. Multiple subacute left-sided rib fractures with evidence of early healing. CONCLUSION: Pleural effusions and atelectasis at both bases. López Perez MD on November 28, 2017 at 12:17 Board Certified Radiologist. This report was verified electronically.
[2017-11-28] MEDS: ENOXAPARIN SODIUM 40 MG/0.4 ML SYRINGE SQ SCH (12:49)
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
[2017-11-28] MEDS: oxyCODONE/ACETAMINOPHEN 5 MG/325 MG TAB PO PRN (23:37)
[2017-11-29] VITALS (12 sets, daily range): BP systolic 116–173; BP diastolic 72–102; PULSE 63–113; RESP 20; TEMP 97.7–100.7; O2SAT 94–96
[2017-11-29] MEDS: CEFEPIME INJ 2,000 MG in SODIUM CHLORIDE 0.9% INJ 100 ML IV SCH ×4 (00:37→21:24)
[2017-11-29 05:20] LABS: BASOPHIL # 0.1 TH/MM3 (0-0.2); BASOPHIL % 0.9 % (0.0-2.0); EOSINOPHIL # 0.2 TH/MM3 (0-0.4); EOSINOPHIL % 1.3 % (0.0-4.0); HEMATOCRIT 33.9 % (39.0-51.0); HEMOGLOBIN 11.4 GM/DL (13.0-17.0); LYMPH % 14.1 % (9.0-44.0); LYMPHOCYTE # 2.1 TH/MM3 (1.0-4.8); MEAN CELL VOLUME 87.7 FL (80.0-100.0); MEAN CORPUSCULAR HEMOGLOBIN 29.4 PG (27.0-34.0); MEAN CORPUSCULAR HGB CONC 33.5 % (32.0-36.0); MEAN PLATELET VOLUME 8.5 FL (7.0-11.0); MONO % 10.6 % (0.0-8.0); MONOCYTE # 1.6 TH/MM3 (0-0.9); NEUT % 73.1 % (16.0-70.0); PLATELET COUNT 1165 TH/MM3 (150-450); RED BLOOD COUNT 3.87 MIL/MM3 (4.50-5.90); RED CELL DISTRIBUTION WIDTH 15.3 % (11.6-17.2)
[2017-11-29] MEDS: VANCOMYCIN INJ 1,750 MG in SODIUM CHLORID 0.9% 500 ML INJ 500 ML IV SCH ×2 (05:38→18:16)
[2017-11-29] MEDS: PROPRANOLOL HCL 10 MG TAB PO SCH (05:38)
[2017-11-29 06:27] LABS: ALBUMIN 2.3 GM/DL (3.4-5.0); ALT (GPT) 39 U/L (12-78); AST (GOT) 44 U/L (15-37); BICARBONATE 20.9 MEQ/L (21.0-32.0); BLOOD UREA NITROGEN 17 MG/DL (7-18); CALCIUM 8.3 MG/DL (8.5-10.1); CHLORIDE 113 MEQ/L (98-107); CREATININE 0.76 MG/DL (0.60-1.30); GLOMERULAR FILTRATION RATE 106 ML/MIN (>89); GLUCOSE,RANDOM 87 MG/DL (74-106); SODIUM (NA) 142 MEQ/L (136-145)
[2017-11-29 06:30] LABS: ALKALINE PHOSPHATASE 182 U/L (45-117); TOTAL BILIRUBIN ADULT 0.4 MG/DL (0.2-1.0); TOTAL PROTEIN 7.3 GM/DL (6.4-8.2)
[2017-11-29] MEDS: LEVOFLOXACIN 750 MG TAB PO SCH (07:49)
[2017-11-29] MEDS: SODIUM CHLORIDE 0.9% FLUSH 10 ML FLUSH IV FLUSH SCH ×2 (07:50→21:00)
[2017-11-29] MEDS: MAGNESIUM HYDROXIDE SUSP 30 ML CUP PO SCH ×2 (07:50→21:00)
[2017-11-29] MEDS: ASPIRIN 325 MG TAB PO SCH (07:50)
[2017-11-29] MEDS: QUEtiapine FUMARATE 25 MG TAB PO SCH (07:50)
[2017-11-29] MEDS: FAMOTIDINE 20 MG TAB PO SCH ×2 (07:50→21:00)
[2017-11-29] MEDS: FLUCONAZOLE 100 MG TAB PO SCH (07:50)
[2017-11-29] MEDS: DOCUSATE SODIUM 50 MG/SENNA 8.6 MG TAB PO SCH ×2 (08:53→21:00)
[2017-11-29 09:45] LABS: BACTERIA, URINE MOD /hpf; BILIRUBIN, URINE NEG (NEG); BLOOD, URINE NEG (NEG); GLUCOSE,URINE NEG (NEG); KETONE, URINE NEG (NEG); MUCUS URINE FEW /lpf (OCC); NITRITE,URINE NEG (NEG); URINE COLOR YELLOW (YELLW/STRAW); URINE LEUKOCYTE ESTERASE NEG (NEG)
[2017-11-29] MEDS ORDERED: PILL SPLITTER OTHER PRN (10:45)
[2017-11-29] MEDS: ATENOLOL 25 MG TAB PO SCH ×2 (10:51→21:00)
[2017-11-29] MEDS: ENOXAPARIN SODIUM 40 MG/0.4 ML SYRINGE SQ SCH (11:45)
[2017-11-29] MEDS ORDERED: cloNIDine HCL 0.2 MG/24 HR PATCH T-DERMAL SCH (12:00)
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
[2017-11-30] VITALS (9 sets, daily range): BP systolic 150–176; BP diastolic 84–95; PULSE 54–78; RESP 15–23; TEMP 97.5–98.7; O2SAT 95–97
[2017-11-30 05:04] LABS: AUTOMATED NEUTROPHIL # 14.3 TH/MM3 (1.8-7.7); BASOPHIL # 0.1 TH/MM3 (0-0.2); BASOPHIL % 0.8 % (0.0-2.0); EOSINOPHIL # 0.2 TH/MM3 (0-0.4); EOSINOPHIL % 0.9 % (0.0-4.0); HEMATOCRIT 33.3 % (39.0-51.0); LYMPH % 11.3 % (9.0-44.0); LYMPHOCYTE # 2.1 TH/MM3 (1.0-4.8); MEAN CORPUSCULAR HEMOGLOBIN 28.8 PG (27.0-34.0); MEAN CORPUSCULAR HGB CONC 33.1 % (32.0-36.0); MEAN PLATELET VOLUME 8.4 FL (7.0-11.0); MONO % 8.5 % (0.0-8.0); MONOCYTE # 1.5 TH/MM3 (0-0.9); NEUT % 78.5 % (16.0-70.0); PLATELET COUNT 1197 TH/MM3 (150-450); RED BLOOD COUNT 3.83 MIL/MM3 (4.50-5.90); RED CELL DISTRIBUTION WIDTH 14.9 % (11.6-17.2); WHITE BLOOD COUNT 18.2 TH/MM3 (4.0-11.0)
[2017-11-30] MEDS: CEFEPIME INJ 2,000 MG in SODIUM CHLORIDE 0.9% INJ 100 ML IV SCH ×3 (05:08→22:24)
[2017-11-30 05:14] LABS: BICARBONATE 21.1 MEQ/L (21.0-32.0); CALCIUM 8.3 MG/DL (8.5-10.1); CREATININE 0.7 MG/DL (0.60-1.30)
[2017-11-30] MEDS: VANCOMYCIN INJ 1,750 MG in SODIUM CHLORID 0.9% 500 ML INJ 500 ML IV SCH ×2 (05:43→18:42)
[2017-11-30] MEDS ORDERED: PHARMACY ORDERED LAB ONE (05:45)
[2017-11-30 06:00] LABS: VANCOMYCIN TROUGH 17.4 MCG/ML (5.0-10.0)
--- NOTE | 2017-11-30 06:22 | RADRPT ---
EXAM DATE/TIME: 11/30/2017 04:02 [facility] COMPARISON: CHEST SINGLE AP, November 27, 2017, 4:43. INDICATIONS : Shortness of breath MEDICAL HISTORY : None. SURGICAL HISTORY : Splenectomy. Fusion, thoracic. Left wrist ENCOUNTER: Subsequent ACUITY: 2 weeks PAIN SCORE: Non-responsive. LOCATION: Bilateral chest FINDINGS: Single AP view of the chest. Mid to lower bilateral lung opacity again seen. Unchanged are the left, moderately decreased on the right. Small left pleural effusion unchanged. Cardiac silhouette is mildl y enlarged but unchanged. Thoracic spine hardware again seen. CONCLUSION: Bilateral pulmonary opacity with decrease in the right. No change on the left. Sean Paiz MD on November 30, 2017 at 6:15 Board Certified Radiologist. This report was verified electronically.
[2017-11-30] MEDS: MAGNESIUM HYDROXIDE SUSP 30 ML CUP PO SCH ×2 (09:02→22:20)
[2017-11-30] MEDS: ASPIRIN 325 MG TAB PO SCH (09:02)
[2017-11-30] MEDS: DOCUSATE SODIUM 50 MG/SENNA 8.6 MG TAB PO SCH ×2 (09:02→22:20)
[2017-11-30] MEDS: SODIUM CHLORIDE 0.9% FLUSH 10 ML FLUSH IV FLUSH SCH ×2 (09:03→22:20)
[2017-11-30] MEDS: FLUCONAZOLE 100 MG TAB PO SCH (09:03)
[2017-11-30] MEDS: LEVOFLOXACIN 750 MG TAB PO SCH (09:03)
[2017-11-30] MEDS: FAMOTIDINE 20 MG TAB PO SCH (09:03)
[2017-11-30] MEDS: ATENOLOL 25 MG TAB PO SCH ×2 (09:06→22:20)
[2017-11-30] MEDS: ENOXAPARIN SODIUM 40 MG/0.4 ML SYRINGE SQ SCH (11:51)
[2017-11-30] MEDS: LISINOPRIL 20 MG TAB PO SCH ×2 (11:51→22:20)
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
[2017-12-01] VITALS: BP 173/96; PULSE 68; RESP 18; TEMP 98; O2SAT 97
[2017-12-01] MEDS: CEFEPIME INJ 2,000 MG in SODIUM CHLORIDE 0.9% INJ 100 ML IV SCH ×3 (06:06→22:49)
[2017-12-01] MEDS: VANCOMYCIN INJ 1,750 MG in SODIUM CHLORID 0.9% 500 ML INJ 500 ML IV SCH ×2 (06:07→17:16)
[2017-12-01 08:00] VITALS: BP 155/76; PULSE 71; RESP 16; TEMP 98.1; O2SAT 95
[2017-12-01] MEDS ORDERED: ENALAPRILAT 1.25 MG/ML VIAL IV PUSH PRN (08:00)
[2017-12-01] MEDS: MAGNESIUM HYDROXIDE SUSP 30 ML CUP PO SCH ×2 (09:00→21:00)
[2017-12-01] MEDS: SODIUM CHLORIDE 0.9% FLUSH 10 ML FLUSH IV FLUSH SCH ×2 (09:00→22:47)
[2017-12-01] MEDS: LEVOFLOXACIN 750 MG TAB PO SCH (10:00)
[2017-12-01] MEDS: ATENOLOL 25 MG TAB PO SCH ×2 (10:00→22:46)
[2017-12-01] MEDS: LISINOPRIL 20 MG TAB PO SCH ×2 (10:00→22:47)
[2017-12-01] MEDS: FLUCONAZOLE 100 MG TAB PO SCH (10:01)
[2017-12-01] MEDS: DOCUSATE SODIUM 50 MG/SENNA 8.6 MG TAB PO SCH ×2 (10:01→21:00)
[2017-12-01] MEDS: ASPIRIN 325 MG TAB PO SCH (10:01)
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
[2017-12-01 12:00] VITALS: BP 148/95; PULSE 73; RESP 15; TEMP 98.3; O2SAT 97
[2017-12-01] MEDS: ENOXAPARIN SODIUM 40 MG/0.4 ML SYRINGE SQ SCH (12:35)
[2017-12-01 13:05] VITALS: O2SAT 96
[2017-12-01 16:00] VITALS: BP 161/83; PULSE 79; RESP 16; TEMP 98.1; O2SAT 96
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
[2017-12-01 20:00] VITALS: BP 170/86; PULSE 68; RESP 18; O2SAT 96
[2017-12-01] MEDS: QUEtiapine FUMARATE 25 MG TAB PO SCH (22:47)
[2017-12-02] VITALS: BP 128/83; PULSE 82; RESP 18; O2SAT 94
[2017-12-02 04:40] LABS: BASOPHIL # 0.3 TH/MM3 (0-0.2); BASOPHIL % 1.4 % (0.0-2.0); EOSINOPHIL # 0.4 TH/MM3 (0-0.4); EOSINOPHIL % 2.1 % (0.0-4.0); HEMATOCRIT 32.9 % (39.0-51.0); HEMOGLOBIN 11.3 GM/DL (13.0-17.0); LYMPH % 11.6 % (9.0-44.0); LYMPHOCYTE # 2.3 TH/MM3 (1.0-4.8); MEAN CELL VOLUME 85.4 FL (80.0-100.0); MEAN CORPUSCULAR HEMOGLOBIN 29.4 PG (27.0-34.0); MEAN CORPUSCULAR HGB CONC 34.4 % (32.0-36.0); MEAN PLATELET VOLUME 8.4 FL (7.0-11.0); MONO % 9.2 % (0.0-8.0); MONOCYTE # 1.8 TH/MM3 (0-0.9); NEUT % 75.7 % (16.0-70.0); PLATELET COUNT 1199 TH/MM3 (150-450); RED BLOOD COUNT 3.86 MIL/MM3 (4.50-5.90); RED CELL DISTRIBUTION WIDTH 15.2 % (11.6-17.2); WHITE BLOOD COUNT 19.8 TH/MM3 (4.0-11.0)
[2017-12-02] MEDS: CEFEPIME INJ 2,000 MG in SODIUM CHLORIDE 0.9% INJ 100 ML IV SCH ×3 (04:56→21:40)
[2017-12-02] MEDS: VANCOMYCIN INJ 1,750 MG in SODIUM CHLORID 0.9% 500 ML INJ 500 ML IV SCH (05:49)
[2017-12-02 08:00] VITALS: BP 175/105; PULSE 79; RESP 17; TEMP 98.4; O2SAT 95
[2017-12-02] MEDS: DOCUSATE SODIUM 50 MG/SENNA 8.6 MG TAB PO SCH ×2 (09:00→21:00)
[2017-12-02] MEDS: MAGNESIUM HYDROXIDE SUSP 30 ML CUP PO SCH ×2 (09:00→21:00)
[2017-12-02] MEDS: ASPIRIN 325 MG TAB PO SCH (09:52)
[2017-12-02] MEDS: ATENOLOL 25 MG TAB PO SCH ×2 (09:53→21:39)
[2017-12-02] MEDS: LISINOPRIL 20 MG TAB PO SCH ×2 (09:53→21:40)
[2017-12-02] MEDS: oxyCODONE/ACETAMINOPHEN 5 MG/325 MG TAB PO PRN (09:53)
[2017-12-02] MEDS: FLUCONAZOLE 100 MG TAB PO SCH (09:53)
[2017-12-02] MEDS: SODIUM CHLORIDE 0.9% FLUSH 10 ML FLUSH IV FLUSH SCH ×2 (09:54→21:00)
[2017-12-02 10:37] VITALS: O2SAT 93
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
[2017-12-02] MEDS: ENOXAPARIN SODIUM 40 MG/0.4 ML SYRINGE SQ SCH (11:22)
[2017-12-02 12:00] VITALS: BP 148/94; PULSE 87; RESP 17; TEMP 97.6; O2SAT 94
[2017-12-02] MEDS: CLINDAMYCIN 150 MG CAP PO SCH ×2 (14:41→21:39)
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
[2017-12-02 16:00] VITALS: BP 134/98; PULSE 95; RESP 17; TEMP 98.3; O2SAT 95
[2017-12-02] MEDS: oxyCODONE/ACETAMINOPHEN 7.5 MG/325 MG TAB PO PRN ×2 (17:18→21:40)
[2017-12-02 20:00] VITALS: BP 128/84; PULSE 69; RESP 20; TEMP 97.9; O2SAT 95
[2017-12-02] MEDS: QUEtiapine FUMARATE 25 MG TAB PO SCH (21:39)
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
[2017-12-03] VITALS: BP 106/71; PULSE 70; RESP 20; TEMP 97.1; O2SAT 95
[2017-12-03] MEDS: CLINDAMYCIN 150 MG CAP PO SCH ×4 (03:00→21:13)
[2017-12-03] MEDS: oxyCODONE/ACETAMINOPHEN 7.5 MG/325 MG TAB PO PRN ×2 (04:46→21:15)
[2017-12-03 04:59] LABS: CREATININE 0.8 MG/DL (0.60-1.30)
[2017-12-03] MEDS: CEFEPIME INJ 2,000 MG in SODIUM CHLORIDE 0.9% INJ 100 ML IV SCH ×3 (05:15→21:12)
[2017-12-03 08:00] VITALS: BP 147/83; PULSE 77; RESP 18; TEMP 98.2; O2SAT 96
[2017-12-03] MEDS: LISINOPRIL 20 MG TAB PO SCH (08:58)
[2017-12-03] MEDS: ASPIRIN 325 MG TAB PO SCH (08:58)
[2017-12-03] MEDS: ATENOLOL 25 MG TAB PO SCH (08:58)
[2017-12-03] MEDS: FLUCONAZOLE 100 MG TAB PO SCH (08:58)
[2017-12-03] MEDS: DOCUSATE SODIUM 50 MG/SENNA 8.6 MG TAB PO SCH ×2 (08:58→21:12)
[2017-12-03] MEDS: MAGNESIUM HYDROXIDE SUSP 30 ML CUP PO SCH ×2 (08:58→21:13)
[2017-12-03] MEDS: SODIUM CHLORIDE 0.9% FLUSH 10 ML FLUSH IV FLUSH SCH ×2 (08:59→21:13)
[2017-12-03] MEDS ORDERED: PERI PO (11:14)
[2017-12-03] MEDS ORDERED: SERO25TA PO (11:14)
[2017-12-03] MEDS ORDERED: CLON.2T T-DERMAL (11:14)
[2017-12-03] MEDS ORDERED: ASA325 PO (11:14)
[2017-12-03] MEDS ORDERED: ENOX40P SQ (11:14)
[2017-12-03] MEDS ORDERED: OXYC1TAB35 PO (11:14)
[2017-12-03] MEDS ORDERED: DIFL100T PO (11:14)
[2017-12-03] MEDS ORDERED: LEVA750T9 PO (11:14)
[2017-12-03] MEDS ORDERED: OXYC1TAB63 PO (11:14)
[2017-12-03] MEDS ORDERED: PNEUMOCOCCAL 13 VALENT PED INJ 0.5 ML SYR IM ONE (11:30)
[2017-12-03] MEDS ORDERED: MENINGOCOCCAL CONJUGATE VACCINE 0.5 ML VIAL IM ONE (11:30)
[2017-12-03] MEDS ORDERED: HAEMOPH B POLYSACCH CONJ VACCINE 0.5 ML VIAL IM ONE (11:30)
[2017-12-03] MEDS: LEVOFLOXACIN 750 MG TAB PO SCH (11:32)
[2017-12-03] MEDS: ENOXAPARIN SODIUM 40 MG/0.4 ML SYRINGE SQ SCH (11:32)
[2017-12-03 12:00] VITALS: BP 123/80; PULSE 85; RESP 16; TEMP 97.7; O2SAT 95
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
[2017-12-03 16:00] VITALS: BP 138/78; PULSE 78; RESP 16; TEMP 97.8; O2SAT 93
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
[2017-12-03 20:00] VITALS: BP 144/83; PULSE 87; RESP 20; TEMP 97.1; O2SAT 98
[2017-12-03] MEDS: QUEtiapine FUMARATE 25 MG TAB PO SCH (21:12)
[2017-12-04] VITALS: BP 127/76; PULSE 90; RESP 20; TEMP 97.4; O2SAT 96
[2017-12-04] MEDS: CLINDAMYCIN 150 MG CAP PO SCH ×4 (01:47→15:45)
[2017-12-04] MEDS: oxyCODONE/ACETAMINOPHEN 7.5 MG/325 MG TAB PO PRN ×2 (01:48→06:04)
[2017-12-04] MEDS: CEFEPIME INJ 2,000 MG in SODIUM CHLORIDE 0.9% INJ 100 ML IV SCH (06:03)
[2017-12-04] MEDS ORDERED: AMLO5 PO (07:12)
[2017-12-04] MEDS ORDERED: FAMO20TA2 PO (07:12)
[2017-12-04] MEDS ORDERED: LISI-515 PO (07:12)
[2017-12-04 08:00] VITALS: BP 130/74; PULSE 98; RESP 16; TEMP 98.5; O2SAT 98
[2017-12-04 08:40] VITALS: O2SAT 96
[2017-12-04] MEDS ORDERED: amLODIPine BESYLATE 5 MG TAB PO SCH (09:00)
[2017-12-04] MEDS: SODIUM CHLORIDE 0.9% FLUSH 10 ML FLUSH IV FLUSH SCH (09:00)
[2017-12-04] MEDS ORDERED: LISINOPRIL 20 MG TAB PO SCH (09:00)
[2017-12-04] MEDS ORDERED: FAMOTIDINE 20 MG TAB PO SCH (09:00)
[2017-12-04] MEDS: FLUCONAZOLE 100 MG TAB PO SCH (09:34)
[2017-12-04] MEDS: DOCUSATE SODIUM 50 MG/SENNA 8.6 MG TAB PO SCH (09:34)
[2017-12-04] MEDS: ASPIRIN 325 MG TAB PO SCH (09:35)
[2017-12-04] MEDS: MAGNESIUM HYDROXIDE SUSP 30 ML CUP PO SCH (09:35)
[2017-12-04 12:00] VITALS: BP 108/82; PULSE 93; RESP 16; TEMP 98.3; O2SAT 98
--- NOTE | 2017-12-04 12:08 | HHI.PR ---
Subjective Subjective Notes PTD: 22 Patient lying in bed. No distress noted. Patient states his "pain is just about gone." "I'm okay." Objective Vitals/I&O Vital Signs Date Time Temp Pulse Resp B/P (MAP) Pulse Ox O2 Delivery O2 Flow Rate FiO2 12/04/17 08:40 96 21 12/04/17 08:00 98.5 98 16 130/74 (92) 12/01/17 15:59 Room Air 12/01/17 13:05 3.00 Labs Date/Time Source Procedure Growth Status 11/26/17 17:00 Blood Peripheral Aerobic Blood Culture - Final NO GROWTH IN 5 DAYS Complete 11/26/17 17:00 Blood Peripheral Anaerobic Blood Culture - Final NO GROWTH IN 5 DAYS Complete 11/26/17 15:50 Sputum Endotracheal Gram Stain - Final Complete 11/26/17 15:50 Sputum Culture - Final Serratia Marcescens Shewanella Putrefaciens Complete 11/29/17 09:24 Urine Catheterized Urine Urine Culture - Final NO GROWTH IN 48 HOURS. Complete Radiology Last Impressions Chest X-Ray 11/30/17 0600 Signed Impressions: Service Date/Time: Thursday, November 30, 2017 04:02 - CONCLUSION: Bilateral pulmonary opacity with decrease in the right. No change on the left. Sean Paiz MD Chest CT 11/28/17 0000 Signed Impressions: Service Date/Time: November 11:18 - CONCLUSION: Pleural effusions and atelectasis at both bases. López Perez MD Abdomen/Pelvis CT 11/28/17 0000 Signed Impressions: Service Date/Time: November 11:18 - CONCLUSION: 1. Splenectomy and thoracolumbar spine surgical changes in the interim as above. There is a nonspecific fluid collection in the splenectomy bed. 2. Patchy devascularization of the left kidney again seen and similar to the prior study. No associated fluid collection. López Perez MD Brain MRI 11/20/17 0000 Signed Impressions: Service Date/Time: Monday, November 20, 2017 14:24 - CONCLUSION: 1. 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 2. 2 tiny focal infarct are seen along the high right cerebral vertex. 3. Tiny right subdural hematoma along the right occipital lobe with 3 mm of separation. Abbe Bernard MD Wrist X-Ray 11/19/17 0000 Signed Impressions: Service Date/Time: Sunday, November 19, 2017 12:59 - CONCLUSION: 1. Fixation of distal left radius. Josué Mathur MD Neck CTA 11/15/17 0000 Signed Impressions: Service Date/Time: Wednesday, November 15, 2017 18:09 - CONCLUSION: 1. 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 2. Right vertebral artery and carotid arteries are patent without dissection. Josué Mathur MD Head CT 11/15/17 0000 Signed Impressions: Service Date/Time: Wednesday, November 15, 2017 16:39 - CONCLUSION: Apparent cerebellar infarcts, new. CTA pending. Fidel Greco MD FACR Thoracic Spine X-Ray 11/14/17 0000 Signed Impressions: Service Date/Time: October 14:45 - CONCLUSION: 1. Fusion thoracic spine Josué Mathur MD Thoracic Spine MRI 11/14/17 0000 Signed Impressions: Service Date/Time: October 09:18 - CONCLUSION: Mild severity compressive injury involving the T. 10 vertebral body with minimal posterior bowing of the posterior margin of the vertebral body. No significant canal compromise. Mild bony injuries at T9 and T. 12 levels. No evidence of canal compromise or cord injury López Rodrigues MD Maxillofacial CT 11/13/17 1505 Signed Impressions: Service Date/Time: Monday, November 13, 2017 15:22 - CONCLUSION: Fracture superior nasal spine. No other fractures are appreciated. Fidel Greco MD FACR Cervical Spine CT 11/13/17 1505 Signed Impressions: Service Date/Time: Monday, November 13, 2017 15:22 - CONCLUSION: No acute bony injury in the cervical spine. Medial right second rib fracture. López Rodrigues MD Thoracic Spine CT 11/13/17 0000 Signed Impressions: Service Date/Time: October 01:04 - CONCLUSION: No retropulsed fragment at the comminuted T10 vertebral body fracture. There are also fractures of the T9-T10 spinous process, right superior articular facet of T9, right T10 lamina, multiple left ribs, and multiple left transverse processes. Favian Leung MD Pelvis X-Ray 11/13/17 0000 Signed Impressions: Service Date/Time: Monday, November 13, 2017 15:03 - CONCLUSION: Motion artifact otherwise negative Fidel Greco MD FACR Disinhibition Score: 17.50 Aggression Score: 14.00 Lability Score: 14.00 Agitated Behavior Total Score: 16 Katia Merida [facility] Dec 04, 2017 12:08
[2017-12-04] MEDS: LEVOFLOXACIN 750 MG TAB PO SCH (13:18)
[2017-12-04] MEDS: ENOXAPARIN SODIUM 40 MG/0.4 ML SYRINGE SQ SCH (13:18)
[2017-12-04] MEDS ORDERED: OXYC1TAB63 PO (15:21)
[2017-12-04] MEDS ORDERED: CLIN150 PO (15:21)
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
[2017-12-04] MEDS ORDERED: ATORVASTATIN 20 MG TAB PO SCH (21:00)
[2017-12-06] MEDS ORDERED: REMOVE OLD CATAPRES (CLONIDINE) PATCH T-DERMAL SCH (12:00)
== END 2017-12-04 16:51 | DRG 955 ==
LOC: NEPI 15:02 → NEDH 15:31 → EDBD 15:31 → MERGE 15:31 → N03B 18:18 → N07A 11-30 15:43
PROVIDERS: ADMIT Surgery; ATTEND Surgery
PROC: 07TP0ZZ Resection of Spleen, Open Approach (ICD-10-PCS; 2017-11-13)
PROC: 0FQG0ZZ Repair Pancreas, Open Approach (ICD-10-PCS; 2017-11-13)
PROC: 0W9G30Z Drainage of Peritoneal Cavity with Drainage Device, Percutaneous Approach (ICD-10-PCS; 2017-11-13)
PROC: 30233K1 Transfusion of Nonautologous Frozen Plasma into Peripheral Vein, Percutaneous Approach (ICD-10-PCS; 2017-11-13)
PROC: 30233R1 Transfusion of Nonautologous Platelets into Peripheral Vein, Percutaneous Approach (ICD-10-PCS; 2017-11-13)
PROC: 30233N1 Transfusion of Nonautologous Red Blood Cells into Peripheral Vein, Percutaneous Approach (ICD-10-PCS; 2017-11-13)
PROC: 0W9B30Z Drainage of Left Pleural Cavity with Drainage Device, Percutaneous Approach (ICD-10-PCS; 2017-11-13)
PROC: 05H633Z Insertion of Infusion Device into Left Subclavian Vein, Percutaneous Approach (ICD-10-PCS; 2017-11-13)
PROC: 5A1955Z Respiratory Ventilation, Greater than 96 Consecutive Hours (ICD-10-PCS; principal; 2017-11-13 16:15)
PROC: 00H032Z Insertion of Monitoring Device into Brain, Percutaneous Approach (ICD-10-PCS; 2017-11-14)
PROC: 0RG7071 Fusion of 2 to 7 Thoracic Vertebral Joints with Autologous Tissue Substitute, Posterior Approach, Posterior Column, Open Approach (ICD-10-PCS; 2017-11-14)
PROC: 0QB30ZZ Excision of Left Pelvic Bone, Open Approach (ICD-10-PCS; 2017-11-14)
PROC: 4A11X4G Monitoring of Peripheral Nervous Electrical Activity, Intraoperative, External Approach (ICD-10-PCS; 2017-11-14)
PROC: 4A103BD Monitoring of Intracranial Pressure, Percutaneous Approach (ICD-10-PCS; 2017-11-14)
PROC: 0BH17EZ Insertion of Endotracheal Airway into Trachea, Via Natural or Artificial Opening (ICD-10-PCS; 2017-11-15)
PROC: 0PS404Z Reposition Thoracic Vertebra with Internal Fixation Device, Open Approach (ICD-10-PCS; 2017-11-19)
PROC: 0PSJ04Z Reposition Left Radius with Internal Fixation Device, Open Approach (ICD-10-PCS; 2017-11-19)
DX: S36.032A Major laceration of spleen, initial encounter (principal); S06.6X9A Traumatic subarachnoid hemorrhage with loss of consciousness of unspecified duration, initial encounter; S32.029A Unspecified fracture of second lumbar vertebra, initial encounter for closed fracture; J96.90 Respiratory failure, unspecified, unspecified whether with hypoxia or hypercapnia; I77.74 Dissection of vertebral artery; T79.4XXA Traumatic shock, initial encounter; J69.0 Pneumonitis due to inhalation of food and vomit; S27.1XXA Traumatic hemothorax, initial encounter; A41.9 Sepsis, unspecified organism; S27.2XXA Traumatic hemopneumothorax, initial encounter; K66.1 Hemoperitoneum; J15.6 Pneumonia due to other Gram-negative bacteria; S06.1X9A Traumatic cerebral edema with loss of consciousness of unspecified duration, initial encounter; S06.5X9A Traumatic subdural hemorrhage with loss of consciousness of unspecified duration, initial encounter; S22.071A Stable burst fracture of T9-T10 vertebra, initial encounter for closed fracture; S22.43XA Multiple fractures of ribs, bilateral, initial encounter for closed fracture; S52.502A Unspecified fracture of the lower end of left radius, initial encounter for closed fracture; S37.012A Minor contusion of left kidney, initial encounter; S36.229A Contusion of unspecified part of pancreas, initial encounter; S27.322A Contusion of lung, bilateral, initial encounter; S32.018A Other fracture of first lumbar vertebra, initial encounter for closed fracture; S32.028A Other fracture of second lumbar vertebra, initial encounter for closed fracture; S22.20XA Unspecified fracture of sternum, initial encounter for closed fracture; K56.7 Ileus, unspecified; F01.51 Vascular dementia, unspecified severity, with behavioral disturbance; J90 Pleural effusion, not elsewhere classified; J98.11 Atelectasis; S06.2X9A Diffuse traumatic brain injury with loss of consciousness of unspecified duration, initial encounter; S02.2XXA Fracture of nasal bones, initial encounter for closed fracture; Z23 Encounter for immunization; S00.33XA Contusion of nose, initial encounter; S00.83XA Contusion of other part of head, initial encounter; V29.9XXA Motorcycle rider (driver) (passenger) injured in unspecified traffic accident, initial encounter; Y92.488 Other paved roadways as the place of occurrence of the external cause; Y93.89 Activity, other specified; Y99.9 Unspecified external cause status; E86.1 Hypovolemia; I65.02 Occlusion and stenosis of left vertebral artery; F41.9 Anxiety disorder, unspecified; I10 Essential (primary) hypertension; Y95 Nosocomial condition
CPT/HCPCS: 31500; 32551; 36430; 36600; 43753; 70450; 70486; 70498; 70551; 71045; 71260; 72070; 72125; 72128; 72146; 72170; 73100; 73110; 74177; 76000; 76937; 80048; 80053; 80202; 81001; 82565; 82805; 83735; 83930; 84100; 84132; 84155; 84295; 85025; 85027; 85610; 85730; 86850; 86900; 86901; 86920; 87040; 87070; 87077; 87086; 87186; 87205; 88305; 88307; 90670; 90734; 93005; 93306; 94002; 94003; 94150; 94640; 94667; 94668; 94770; 96361; 96374; 99291; C1713; C9113; G0390; J0131; J0690; J0692; J1100; J1580; J1630; J1644; J1650; J1940; J1953; J1956; J2250; J2270; J2370; J3010; J3370; J3480; J7030; J7040; J7050; J7120; L0150; L0172; L0484; P9016; P9017; P9035; Q9967

== ENCOUNTER 2017-12-05 15:54 | Emergency (ER) | payer MEDICARE ==
[~2017-12-05] VITALS: Ht 182.9 cm; Wt 81.0 kg
[~2017-12-05 15:54] MED LIST changes: +AMLO5 PO; +ASA325 PO; -CALCIUM CHLORIDE 10% SOLN 1 GRAM/10 ML SYR IV ONE; +CLIN150 PO; +CLON.2T T-DERMAL; +DIFL100T PO; +ENOX40P SQ; +FAMO20TA2 PO; -IBUP-232 PO; +LEVA750T9 PO; -LIDOCAINE HCL 1% PF 5 ML SYRINGE OTHER ONE; +LISI-515 PO; +OXYC1TAB63 PO; +PERI PO; -PHENYLEPH/NS 1000 MCG/10 ML SYR IV ONE; -PROPOFOL 200 MG/20 ML AMP IV ONE; -ROCURONIUM INJ 50 MG/5 ML SYRINGE IV PUSH ONE; +SERO25TA PO; -SODIUM BICARBONATE 8.4% INJ 50 MEQ/50 ML SYR IV ONE; -SODIUM CHLOR 0.9% 1000 ML INJ 3,000 ML IV ONE; -VECURONIUM BROMIDE 20 MG VIAL IV ONE; -ceFAZolin INJ 1,000 MG VIAL IV ONE; -ePHEDrine/NS 25 MG/5 ML SYRINGE IV ONE
[2017-12-05 16:35] VITALS: BP 117/68; PULSE 79; RESP 17; TEMP 98.9; O2SAT 99
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
--- NOTE | 2017-12-05 18:23 | RADRPT ---
EXAM DATE/TIME: 12/05/2017 18:07 [place] COMPARISON: CT BRAIN W/O CONTRAST, November 15, 2017, 16:39. INDICATIONS : Trauma. Fall. RADIATION DOSE: 35.95 CTDIvol (mGy) MEDICAL HISTORY : None SURGICAL HISTORY : None. ENCOUNTER: Initial ACUITY: 1 day PAIN SCALE: 0/10 LOCATION: cranial TECHNIQUE: Multiple contiguous axial images were obtained of the head. Using automated exposure control and adj ustment of the mA and/or kV according to patient size, radiation dose was kept as low as reasonably a chievable to obtain optimal diagnostic quality images. DICOM format image data is available electro nically for review and comparison. FINDINGS: There is a low-density subdural hematoma noted along the right parietal and occipital convexitie s measuring up to approximately 4 mm in transverse diameter. The previously noted low density areas o f edema in both posterior cerebellar hemispheres are improved. There is no new acute high density hem orrhage, mass effect or midline shift. Mild atrophic changes are noted. There is no mass. The brainst em is intact. Bone windows demonstrate no acute fracture or underlying bony abnormality. CONCLUSION: 1. No acute high density hemorrhage or mass effect. 2. Subacute low density right subdural hematoma along the parietal and occipital convexities. 3. The previously noted areas of edema in both cerebellar hemispheres have decreased. Isaac Tinsley MD on December 05, 2017 at 18:16 Board Certified Radiologist. This report was verified electronically.
[2017-12-05 19:06] VITALS: BP 127/78; PULSE 80; RESP 18; O2SAT 98
--- NOTE | 2017-12-07 10:58 | EKG ---
Date Performed: 12/05/2017 Time Performed: 17:09:00 PTAGE: 57 years EKG: Sinus rhythm WITH SHORT WI INTERVAL NONSPECIFIC T-WAVE ABNORMALITY BORDERLINE ECG Compared to PREVIOUS TRACING , WI interval has shortened, but there is no evidence seen for pre-impla ntation. PREVIOUS TRACIN05/01/2012 12.33 DOCTOR: Les Hoffman Interpretating Date/Time 12/07/2017 10:57:42
== END 2017-12-05 21:23 ==
LOC: NEPE 15:54
DX: S01.81XA Laceration without foreign body of other part of head, initial encounter (principal); R94.31 Abnormal electrocardiogram [ECG] [EKG]; W19.XXXA Unspecified fall, initial encounter
CPT/HCPCS: 70450; 93005; 99284

== ENCOUNTER 2017-12-09 04:46 | Inpatient (IN) | payer MEDICARE ==
[2017-12-09] VITALS (13 sets, daily range): BP systolic 92–126; BP diastolic 55–79; PULSE 92–114; RESP 16–23; TEMP 97.3–99.4; O2SAT 96–100
[~2017-12-09] VITALS: Ht 177.8 cm; Wt 75.4 kg
[2017-12-09] MEDS ORDERED: PANTOPRAZOLE INJ 80 MG in SODIUM CHLORIDE 0.9% INJ 35 ML IV ONE (05:16)
[2017-12-09] MEDS ORDERED: SODIUM CHLOR 0.9% 1000 ML INJ 1,000 ML IV SCH (05:16)
[2017-12-09] MEDS ORDERED: SODIUM CHLORIDE 0.9% FLUSH 10 ML FLUSH IVF PRN (05:30)
[2017-12-09] MEDS ORDERED: ONDANSETRON HCL 4 MG/2 ML VIAL IVP ONE (05:30)
[2017-12-09 05:37] LABS: AUTOMATED NEUTROPHIL # 15.8 TH/MM3 (1.8-7.7); BASOPHIL % 0.2 % (0.0-2.0); EOSINOPHIL # 0.2 TH/MM3 (0-0.4); EOSINOPHIL % 0.9 % (0.0-4.0); HEMATOCRIT 27.1 % (39.0-51.0); HEMOGLOBIN 8.4 GM/DL (13.0-17.0); LYMPH % 20.2 % (9.0-44.0); LYMPHOCYTE # 4.8 TH/MM3 (1.0-4.8); MEAN CELL VOLUME 85.5 FL (80.0-100.0); MEAN CORPUSCULAR HEMOGLOBIN 26.7 PG (27.0-34.0); MEAN CORPUSCULAR HGB CONC 31.2 % (32.0-36.0); MEAN PLATELET VOLUME 7.7 FL (7.0-11.0); MONO % 12.4 % (0.0-8.0); NEUT % 66.3 % (16.0-70.0); PLATELET COUNT 831 TH/MM3 (150-450); RED BLOOD COUNT 3.16 MIL/MM3 (4.50-5.90); RED CELL DISTRIBUTION WIDTH 15.7 % (11.6-17.2); WHITE BLOOD COUNT 23.8 TH/MM3 (4.0-11.0)
[2017-12-09 05:57] LABS: ALKALINE PHOSPHATASE 159 U/L (45-117); TOTAL BILIRUBIN ADULT 0.2 MG/DL (0.2-1.0); TOTAL PROTEIN 6.4 GM/DL (6.4-8.2)
[2017-12-09 06:05] LABS: ALBUMIN 2.5 GM/DL (3.4-5.0); ALT (GPT) 90 U/L (12-78); AST (GOT) 67 U/L (15-37); BICARBONATE 20.1 MEQ/L (21.0-32.0); BLOOD UREA NITROGEN 44 MG/DL (7-18); CALCIUM 8.5 MG/DL (8.5-10.1); CHLORIDE 108 MEQ/L (98-107); GLOMERULAR FILTRATION RATE 39 ML/MIN (>89); GLUCOSE,RANDOM 115 MG/DL (74-106); INTERNATIONAL NORMALIZED RATIO 1.3 RATIO; PROTHROMBIN TIME - PATIENT 13.5 SEC (9.8-11.6); SODIUM (NA) 138 MEQ/L (136-145)
[2017-12-09] MEDS: PANTOPRAZOLE INJ 80 MG in SODIUM CHLORIDE 0.9% INJ 100 ML IV SCH ×3 (06:09→17:00)
[2017-12-09 06:15] LABS: LYMPHOCYTES 21 % (9-44); MONOCYTES 9 % (0-8); NEUTROPHIL # MANUAL DIFF 16.4 TH/MM3 (1.8-7.7); POLYS (SEG NEUTROPHILS) 69 % (16-70)
[2017-12-09] MEDS ORDERED: SODIUM CHLOR 0.9% 250 ML INJ 250 ML IV ONE (06:15)
[2017-12-09] MEDS ORDERED: SODIUM CHLOR 0.9% 1000 ML INJ 1,000 ML IV ONE ×2 (06:15)
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
--- NOTE | 2017-12-09 07:03 | RADRPT ---
EXAM DATE/TIME: 12/09/2017 06:41 [facility] COMPARISON: CT ABDOMEN & PELVIS W CONTRAST, November 28, 2017, 11:18. INDICATIONS : Abdomen pain with rectal bleeding. ORAL CONTRAST: No oral contrast ingested. RADIATION DOSE: 9.83 CTDIvol (mGy) MEDICAL HISTORY : None SURGICAL HISTORY : None. ENCOUNTER: Initial ACUITY: 1 day PAIN SCALE: 0/10 LOCATION: abdomen TECHNIQUE: Volumetric scanning of the abdomen and pelvis was performed. Using automated exposure control and ad justment of the mA and/or kV according to patient size, radiation dose was kept as low as reasonably achievable to obtain optimal diagnostic quality images. DICOM format image data is available electro nically for review and comparison. FINDINGS: LOWER LUNGS: There is left lower lobe airspace consolidation and minimal dependent atelectasis identified within t he right lower lobe. The previously noted pleural effusions have resolved. LIVER: Homogeneous density without lesion. There is no dilation of the biliary tree. The patient is status post prior cholecystectomy. SPLEEN: The patient is status post splenectomy with a fluid collectio n identified within the left upper quadrant. The overall size of the fluid collection appears stable as compared to the prior exam. There is layering high density material identified within the dependen t portion of the splenic fluid collection. PANCREAS: Within normal limits. KIDNEYS: Normal in size and shape. There is no mass, stone, or hydronephrosis. ADRENAL GLANDS: Within normal limits. VASCULAR: There is no aortic aneurysm. BOWEL/MESENTERY: There is fluid distended the sigmoid colon and rectum. The Hounsfield units measure 31. No abnormal w all thickening. Noncontrast small bowel is unremarkable. ABDOMINAL WALL: Within normal limits. RETROPERITONEUM: There is no lymphadenopathy. BLADDER: No wall thickening or mass. REPRODUCTIVE: Within normal limits. INGUINAL: There is no lymphadenopathy or hernia. MUSCULOSKELETAL: Stable appearance of fusion hardware identified within the thoracic spine. CONCLUSION: Stable size of the splenic fluid collection with layering high density material identified dependentl y. There is fluid with mildly elevated Hounsfield units distending the sigmoid and rectum consistent with the patient's clinical history of bleeding. No source is identified. Deedee Radford MD on December 09, 2017 at 6:53 Board Certified Radiologist. This report was verified electronically.
[2017-12-09] MEDS ORDERED: SODIUM CHLORID 0.9% 500 ML INJ 500 ML IV PRN (08:00)
--- NOTE | 2017-12-09 08:06 | PD ---
Physical Exam Date Seen by Provider: Dec 09, 2017 Time Seen by Provider: 08:05 Narrative 57-year-old male status post TBI from rehab center for upper and lower GI bleed that was noticed by the nursing staff at the rehab. He was seen by the previous ER physician. Please refer to his history and physical for further details. Signout was to admit the patient to the hospitalist service. I discussed the case with the hospitalist and patient has been admitted. He remains hemodynamically stable. The previous ER physician ordered 2 units of packed red blood cell transfusion. The admitting physician would order for GI consultation. Data Data Last Documented VS Vital Signs Date Time Temp Pulse Resp B/P (MAP) Pulse Ox O2 Delivery O2 Flow Rate FiO2 12/09/17 08:00 114 16 96/55 (69) 97 Room Air 12/09/17 07:41 98.2 Orders Orders Complete Blood Count With Diff (12/09/17 05:16) Comprehensive Metabolic Panel (12/09/17 05:16) Prothrombin Time / Inr (Pt) (12/09/17 05:16) Act Partial Throm Time (Ptt) (12/09/17 05:16) Type And Screen (12/09/17 05:16) Iv Access Insert/Monitor (12/09/17 05:16) Ondansetron Inj (Zofran Inj) (12/09/17 05:30) Sodium Chlor 0.9% 1000 Ml Inj (Ns 1000 M (12/09/17 05:16) Sodium Chloride 0.9% Flush (Ns Flush) (12/09/17 05:30) Sodium Chloride 0.9... W/Pantoprazole In (12/09/17 05:16) Sodium Chloride 0.9... W/Pantoprazole In (12/09/17 05:16) Red Blood Cells (Rbc) (12/09/17 06:08) Blood Product Administration (12/09/17 06:08) Sodium Chlor 0.9% 250 Ml Inj (Ns 250 Ml (12/09/17 06:15) Ct Abd/Pel W/O Iv Contrast (12/09/17 06:08) Sodium Chlor 0.9% 1000 Ml Inj (Ns 1000 M (12/09/17 06:15) Sodium Chlor 0.9% 1000 Ml Inj (Ns 1000 M (12/09/17 06:15) Admit Order (Ed Use Only) (12/09/17 08:01) Labs Laboratory Tests Test 12/09/17 05:15 White Blood Count 23.8 TH/MM3 Red Blood Count 3.16 MIL/MM3 Hemoglobin 8.4 GM/DL Hematocrit 27.1 % Mean Corpuscular Volume 85.5 FL Mean Corpuscular Hemoglobin 26.7 PG Mean Corpuscular Hemoglobin Concent 31.2 % Red Cell Distribution Width 15.7 % Platelet Count 831 TH/MM3 Mean Platelet Volume 7.7 FL Neutrophils (%) (Auto) 66.3 % Lymphocytes (%) (Auto) 20.2 % Monocytes (%) (Auto) 12.4 % Eosinophils (%) (Auto) 0.9 % Basophils (%) (Auto) 0.2 % Neutrophils # (Auto) 15.8 TH/MM3 Lymphocytes # (Auto) 4.8 TH/MM3 Monocytes # (Auto) 3.0 TH/MM3 Eosinophils # (Auto) 0.2 TH/MM3 Basophils # (Auto) 0.0 TH/MM3 CBC Comment AUTO DIFF Differential Total Cells Counted 100 Neutrophils % (Manual) 69 % Lymphocytes % 21 % Monocytes % 9 % Eosinophils % 1 % Neutrophils # (Manual) 16.4 TH/MM3 Differential Comment FINAL DIFF MANUAL Platelet Estimate HIGH Platelet Morphology Comment NORMAL Prothrombin Time 13.5 SEC Prothromb Time International Ratio 1.3 RATIO Activated Partial Thromboplast Time 25.9 SEC Blood Urea Nitrogen 44 MG/DL Creatinine 1.80 MG/DL Random Glucose 115 MG/DL Total Protein 6.4 GM/DL Albumin 2.5 GM/DL Calcium Level 8.5 MG/DL Alkaline Phosphatase 159 U/L Aspartate Amino Transf (AST/SGOT) 67 U/L Alanine Aminotransferase (ALT/SGPT) 90 U/L Total Bilirubin 0.2 MG/DL Sodium Level 138 MEQ/L Potassium Level 4.9 MEQ/L Chloride Level 108 MEQ/L Carbon Dioxide Level 20.1 MEQ/L Anion Gap 10 MEQ/L Estimat Glomerular Filtration Rate 39 ML/MIN Total Creatine Kinase 47 U/L [facility] Supervised Visit with BRIAN: No Diagnosis Primary Impression: GI bleed Qualified Codes: K92.2 - Gastrointestinal hemorrhage, unspecified Admitting Information Admitting Physician Requests: Admit Scripts Pantoprazole (Pantoprazole) 40 Mg Tab 40 MG PO DAILY, #30 TAB Prov: Rajat Thurston MD 12/11/17 Candice Valadez MD Dec 09, 2017 08:06
[2017-12-09] MEDS ORDERED: oxyCODONE/ACETAMINOPHEN 5 MG/325 MG TAB PO PRN (08:15)
[2017-12-09] MEDS ORDERED: ACETAMINOPHEN 325 MG TAB PO PRN (08:15)
[2017-12-09] MEDS ORDERED: NALOXONE HCL 0.4 MG/ML AMP IV PUSH PRN (08:15)
[2017-12-09] MEDS ORDERED: ONDANSETRON HCL 4 MG/2 ML VIAL IV PUSH PRN (08:15)
[2017-12-09] MEDS ORDERED: BISACODYL 10 MG SUPP RECTAL PRN (08:15)
[2017-12-09] MEDS ORDERED: LACTULOSE SYRUP 20 GM/30 ML CUP PO PRN (08:15)
[2017-12-09] MEDS ORDERED: MORPHINE SULFATE 2 MG/ML SYRINGE IV PUSH PRN (08:15)
[2017-12-09] MEDS ORDERED: oxyCODONE/ACETAMINOPHEN 10 MG/325 MG TAB PO PRN (08:15)
[2017-12-09] MEDS ORDERED: SODIUM CHLORIDE 0.9% FLUSH 10 ML FLUSH IV FLUSH PRN (08:15)
[2017-12-09] MEDS ORDERED: SENNOSIDES 8.6 MG TAB PO PRN (08:15)
[2017-12-09] MEDS: LEVOFLOXACIN 750 MG TAB PO SCH (08:35)
[2017-12-09] MEDS: SODIUM CHLORIDE 0.9% FLUSH 10 ML FLUSH IV FLUSH SCH ×2 (09:00→21:00)
[2017-12-09] MEDS ORDERED: FLUCONAZOLE 100 MG TAB PO SCH (09:00)
[2017-12-09] MEDS: CLINDAMYCIN 150 MG CAP PO SCH ×3 (09:25→21:00)
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
[2017-12-09] MEDS ORDERED: ePHEDrine/NS 25 MG/5 ML SYRINGE IV ONE (12:00)
[2017-12-09] MEDS ORDERED: SUCCINYLCHOLINE CHLORIDE 100 MG/5 ML SYRINGE IV PUSH ONE (12:00)
[2017-12-09] MEDS ORDERED: LIDOCAINE HCL 1% PF 5 ML SYRINGE OTHER ONE (12:00)
[2017-12-09] MEDS ORDERED: PROPOFOL 200 MG/20 ML AMP IV ONE (12:00)
[2017-12-09] MEDS ORDERED: METOPROLOL TARTRATE 25 MG TAB PO PRN (12:45)
[2017-12-09] MEDS ORDERED: LACTATED RINGER'S 1000 ML IV PRN (12:45)
[2017-12-09] MEDS ORDERED: SODIUM CHLORID 0.9% 500 ML IV PRN (12:45)
[2017-12-09] MEDS ORDERED: CHLORHEXIDINE GLUCONATE 2 % 1 PACK (2 CLOTHS) TOPICAL PRN (12:45)
[2017-12-09] MEDS ORDERED: POVIDONE IODINE 5% (ANTISEPSIS KIT) 4 APPLICATIONS EACH NARE PRN (12:45)
--- NOTE | 2017-12-09 14:04 | GIPROC ---
[facility] [address] [facility]. [facility], [address] EGD PROCEDURE REPORT EXAM DATE: 12/09/2017 PATIENT NAME: Mahendra Zendejas MR #: [id number] BIRTHDATE: 1960 ATTENDING: Colette Chang MD ORDER #: [id number] REGISTERED DENTAL ASSISTANT RDA: Yudi Bonilla and Paul Cruz STATUS: inpatient INDICATIONS: The patient is a 57 yr old male here for an EGD due to gi bleeding anemia PROCEDURE PERFORMED: EGD w/ biopsy egd with control of bleeding MEDICATIONS: None and Per Anesthesia. TOPICAL ANESTHETIC: none CONSENT: The patient understands the risks and benefits of the procedure and understands that these risks include, but are not limited to: sedation, allergic reaction, infection, perforation and/or bleeding. Alternative means of evaluation and treatment include, among others: physical exam, x-rays, and/or surgical intervention. The patient elects to proceed with this endoscopic procedure. medical equipment was checked for proper function. Hand hygiene and appropriate measures for infection prevention was taken. After the risks, benefits and alternatives of the procedure were thoroughly explained, Informed consent was verified, confirmed and timeout was successfully executed by the treatment team. The patient was anesthetized with topical anesthesia and the Pentax [id number] endoscope was introduced through the mouth and advanced to the second portion of the duodenum. Retroflexed views revealed a hiatal hernia The gastroscope was then slowly withdrawn and removed. Gastritis antrum-biopsy ulcer in duodnum second portion, covered with fressh blood, actively bleeding-s/p epinephrine 1:10,000 - 8 cc, 4 clips applied -no further bleeding. ADVERSE EVENTS: There were no complications. IMPRESSIONS: 1. Gastritis antrum-biopsy ulcer in duodnum second portion, covered with fressh blood, actively bleeding-s/p epinephrine 1:10,000 - 8 cc, 4 clips applied -no further bleeding 2. Retroflexed views revealed a hiatal hernia RECOMMENDATIONS: 1. Await biopsy results. Biopsy results will not be ready for 7-10 days. If you don't hear from us in two weeks, call our office for biopsy results. 2. Anti-reflux regimen 3. Continue PPI 4. Clear liquid diet protonix drip colonoscopy in am transfuse prn to keep hb more than 8 PATIENT CONDITION: stable DISPOSITION: Inpatient REPEAT EXAM: Return 2 weeks EGD Colette Chang MD eSigned: Colette Chang MD 12/09/2017 2:03 PM cc: PATIENT NAME: Mahendra Zendejas MR#: [id number]
[2017-12-09] MEDS ORDERED: MAGNESIUM CITRATE SOLN 300 ML BTL PO ONE (14:15)
[2017-12-09] MEDS ORDERED: EPINEPHrine HCL (1:10,000) 1 MG/10 ML SYRINGE OTHER ONE (15:28)
[2017-12-09] MEDS: SODIUM CHLOR 0.9% 1000 ML INJ 1,000 ML IV SCH ×2 (16:15→17:00)
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
[2017-12-09] MEDS ORDERED: PROCHLORPERAZINE INJ 10 MG/2 ML VIAL IM PRN (17:00)
[2017-12-09 17:53] LABS: AUTOMATED NEUTROPHIL # 13.1 TH/MM3 (1.8-7.7); BASOPHIL # 0.2 TH/MM3 (0-0.2); BASOPHIL % 0.9 % (0.0-2.0); EOSINOPHIL # 0.3 TH/MM3 (0-0.4); EOSINOPHIL % 1.6 % (0.0-4.0); HEMATOCRIT 28.6 % (39.0-51.0); HEMOGLOBIN 9.2 GM/DL (13.0-17.0); LYMPH % 12.8 % (9.0-44.0); LYMPHOCYTE # 2.2 TH/MM3 (1.0-4.8); MEAN CELL VOLUME 83.7 FL (80.0-100.0); MEAN CORPUSCULAR HGB CONC 32.2 % (32.0-36.0); MEAN PLATELET VOLUME 7.7 FL (7.0-11.0); MONO % 9.8 % (0.0-8.0); MONOCYTE # 1.7 TH/MM3 (0-0.9); NEUT % 74.9 % (16.0-70.0); PLATELET COUNT 642 TH/MM3 (150-450); RED BLOOD COUNT 3.42 MIL/MM3 (4.50-5.90); RED CELL DISTRIBUTION WIDTH 16.5 % (11.6-17.2); WHITE BLOOD COUNT 17.5 TH/MM3 (4.0-11.0)
[2017-12-10] VITALS (9 sets, daily range): BP systolic 113–154; BP diastolic 67–88; PULSE 68–118; RESP 18–21; TEMP 97.4–98.1; O2SAT 95–100
[2017-12-10] MEDS: QUEtiapine FUMARATE 25 MG TAB PO SCH ×2 (00:26→21:25)
[2017-12-10] MEDS: SODIUM CHLOR 0.9% 1000 ML INJ 1,000 ML IV SCH ×2 (00:30→21:27)
[2017-12-10] MEDS: CLINDAMYCIN 150 MG CAP PO SCH ×4 (04:18→21:25)
[2017-12-10 05:58] LABS: AUTOMATED NEUTROPHIL # 10.3 TH/MM3 (1.8-7.7); BASOPHIL # 0.2 TH/MM3 (0-0.2); BASOPHIL % 1.3 % (0.0-2.0); EOSINOPHIL # 0.4 TH/MM3 (0-0.4); EOSINOPHIL % 2.5 % (0.0-4.0); HEMATOCRIT 31.8 % (39.0-51.0); HEMOGLOBIN 10.4 GM/DL (13.0-17.0); LYMPH % 16.9 % (9.0-44.0); LYMPHOCYTE # 2.6 TH/MM3 (1.0-4.8); MEAN CELL VOLUME 83.9 FL (80.0-100.0); MEAN CORPUSCULAR HEMOGLOBIN 27.5 PG (27.0-34.0); MEAN CORPUSCULAR HGB CONC 32.8 % (32.0-36.0); MEAN PLATELET VOLUME 7.8 FL (7.0-11.0); MONO % 11.7 % (0.0-8.0); MONOCYTE # 1.8 TH/MM3 (0-0.9); NEUT % 67.6 % (16.0-70.0); PLATELET COUNT 674 TH/MM3 (150-450); RED BLOOD COUNT 3.79 MIL/MM3 (4.50-5.90); RED CELL DISTRIBUTION WIDTH 16.6 % (11.6-17.2); WHITE BLOOD COUNT 15.2 TH/MM3 (4.0-11.0)
[2017-12-10 06:23] LABS: BICARBONATE 19.1 MEQ/L (21.0-32.0); CALCIUM 8.3 MG/DL (8.5-10.1); CREATININE 0.73 MG/DL (0.60-1.30)
[2017-12-10] MEDS: PANTOPRAZOLE INJ 80 MG in SODIUM CHLORIDE 0.9% INJ 100 ML IV SCH (07:34)
[2017-12-10] MEDS ORDERED: CHLORHEXIDINE GLUCONATE 2 % 1 PACK (2 CLOTHS) TOPICAL PRN (08:30)
[2017-12-10] MEDS ORDERED: SODIUM CHLORID 0.9% 500 ML IV PRN (08:30)
[2017-12-10] MEDS ORDERED: METOPROLOL TARTRATE 25 MG TAB PO PRN (08:30)
[2017-12-10] MEDS ORDERED: POVIDONE IODINE 5% (ANTISEPSIS KIT) 4 APPLICATIONS EACH NARE PRN (08:30)
[2017-12-10] MEDS ORDERED: LACTATED RINGER'S 1000 ML IV PRN (08:30)
[2017-12-10] MEDS: SODIUM CHLORIDE 0.9% FLUSH 10 ML FLUSH IV FLUSH SCH ×2 (09:00→21:27)
[2017-12-10] MEDS ORDERED: DO NOT ADM ANY ANTICOAGULANT DRUGS PRN (09:52)
--- NOTE | 2017-12-10 09:57 | GIPROC ---
[facility] [address] [facility]. [facility], [address] COLONOSCOPY PROCEDURE REPORT EXAM DATE: 12/10/2017 PATIENT NAME: Mahendra Zendejas MR #: [id number] BIRTHDATE: 1960 ENDOSCOPIST: Colette Chang MD ORDER #: [id number] CABIN SERVICE AGENT: Jalil Aviles and Lizbeth Connor STATUS: inpatient INDICATIONS: The patient is a 57 yr old male here for a colonoscopy due to anemia PROCEDURE PERFORMED: colonoscopy with clips appliance Submucosal injection, any substance MEDICATIONS: None and Per Anesthesia. PREP QUALITY: poor PREP TYPE:Other: ESTIMATED BLOOD LOSS: None CONSENT: The patient understands the risks and benefits of the procedure and understands that these risks include, but are not limited to: sedation, allergic reaction, infection, perforation and/or bleeding. Alternative means of evaluation and treatment include, among others: physical exam, x-rays, and/or surgical intervention. The patient elects to proceed with this endoscopic procedure. medical equipment was checked for proper function. Hand hygiene and appropriate measures for infection prevention was taken. After the risks, benefits and alternatives of the procedure were thoroughly explained, Informed consent was verified, confirmed and timeout was successfully executed by the treatment team. A digital exam revealed external hemorrhoids The Pentax [id number] endoscope was introduced through the anus and advanced to the cecum, which was identified by both the appendix and ileocecal valve. The instrument was then slowly withdrawn as the colon was fully examined. COLON FINDINGS: Polyp diminutive descending -biopsy polyp pedunculated sigmoid- 2 cm-hot snare poylpectomy with complete removal, 3 clips applied at the base , stump marked with james ink 5 cc. Retroflexed views revealed internal hemorrhoids and Retroflexed views revealed small internal hemorrhoids The scope was then completely withdrawn from the patient and the procedure terminated. PROCEDURE WITHDRAWAL TIME:10minutes ADVERSE EVENTS: There were no complications. IMPRESSIONS: 1. Polyp diminutive descending -biopsy polyp pedunculated sigmoid- 2 cm-hot snare poylpectomy with complete removal, 3 clips applied at the base , stump marked with james ink 5 cc 2. Retroflexed views revealed internal hemorrhoids 3. Retroflexed views revealed small internal hemorrhoids 4. Revealed external hemorrhoids RECOMMENDATIONS: 1. Await biopsy results. Biopsy results will not be ready for 7-10 days. If you don't hear from us in two weeks, call our office for results. 2. Benefiber 2 tsp daily 3. Probiotics from any [facility] or [employer] food store 4. Yearly rectal exams 5. Clear liquid diet advance as tolerated RECALL: Colonoscopy Colette Chang MD eSigned: Colette Chang MD 12/10/2017 9:57 AM cc: PATIENT NAME: Mahendra Zendejas MR#: [id number]
[2017-12-10 11:20] LABS: HEMATOCRIT 27.7 % (39.0-51.0); HEMOGLOBIN 9.1 GM/DL (13.0-17.0)
[2017-12-10] MEDS: LEVOFLOXACIN 750 MG TAB PO SCH (11:50)
[2017-12-10] MEDS ORDERED: LIDOCAINE HCL 1% PF 5 ML SYRINGE OTHER ONE (12:00)
[2017-12-10] MEDS ORDERED: PROPOFOL 200 MG/20 ML AMP IV ONE (12:00)
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
[2017-12-10 21:32] LABS: HEMATOCRIT 26.8 % (39.0-51.0); HEMOGLOBIN 8.8 GM/DL (13.0-17.0)
[2017-12-11] VITALS: BP 118/74; PULSE 93; RESP 21; TEMP 98.3; O2SAT 95
[2017-12-11] MEDS: CLINDAMYCIN 150 MG CAP PO SCH ×3 (03:00→15:31)
[2017-12-11 03:39] VITALS: PULSE 95
[2017-12-11 04:19] LABS: HEMATOCRIT 26.3 % (39.0-51.0); HEMOGLOBIN 8.6 GM/DL (13.0-17.0)
[2017-12-11 06:33] VITALS: BP 129/85; PULSE 99; RESP 19; TEMP 98.1; O2SAT 97
[2017-12-11 08:00] VITALS: BP 127/77; PULSE 100; PULSE 89; RESP 16; TEMP 97.9; O2SAT 93
[2017-12-11] MEDS: SODIUM CHLORIDE 0.9% FLUSH 10 ML FLUSH IV FLUSH SCH (08:56)
[2017-12-11] MEDS ORDERED: PANTOPRAZOLE SOD 40 MG DELAYED RELEASE TAB PO SCH (09:00)
[2017-12-11 12:00] VITALS: BP 128/76; PULSE 68; PULSE 92; RESP 17; TEMP 97.5; O2SAT 97
[2017-12-11 14:09] LABS: HEMATOCRIT 26.1 % (39.0-51.0); HEMOGLOBIN 8.6 GM/DL (13.0-17.0); MEAN CELL VOLUME 84.5 FL (80.0-100.0); MEAN CORPUSCULAR HEMOGLOBIN 27.6 PG (27.0-34.0); MEAN CORPUSCULAR HGB CONC 32.7 % (32.0-36.0); MEAN PLATELET VOLUME 7.5 FL (7.0-11.0); PLATELET COUNT 563 TH/MM3 (150-450); RED BLOOD COUNT 3.09 MIL/MM3 (4.50-5.90); RED CELL DISTRIBUTION WIDTH 16.5 % (11.6-17.2); WHITE BLOOD COUNT 11.9 TH/MM3 (4.0-11.0)
--- NOTE | 2017-12-11 14:14 | HHI.GIFU ---
Subjective Remarks Pt resting in bed, family at bedside. Denies n/v. Objective Vitals I&O Vital Signs Date Time Temp Pulse Resp B/P (MAP) Pulse Ox O2 Delivery O2 Flow Rate FiO2 12/11/17 12:00 68 12/11/17 08:00 97.9 89 16 127/77 (94) 93 12/11/17 08:00 100 12/11/17 06:33 98.1 99 19 129/85 (100) 97 12/11/17 03:39 95 12/11/17 00:00 98.3 93 21 118/74 (89) 95 12/10/17 23:40 71 12/10/17 20:00 97.4 95 21 154/85 (108) 100 12/10/17 16:00 97.5 106 20 123/88 (100) 95 12/10/17 16:00 68 I/O 12/10/17 12/10/17 12/10/17 12/11/17 12/11/17 12/11/17 07:00 15:00 23:00 07:00 15:00 23:00 Intake Total 300 ml 1720 ml Output Total 600 ml 450 ml Balance -600 ml 300 ml 1720 ml -450 ml Intake Oral 0 ml IV Total 1720 ml Other 300 ml Output Urine Total 600 ml 450 ml # Voids 3 2 # Bowel Movements 1 0 Laboratory Laboratory Tests Test 12/10/17 20:43 12/11/17 04:08 Hemoglobin 8.8 8.6 Hematocrit 26.8 26.3 Imaging Last Impressions Abdomen/Pelvis CT 12/09/17 0608 Signed Impressions: Service Date/Time: Saturday, December 09, 2017 06:41 - CONCLUSION: Stable size of the splenic fluid collection with layering high density material identified dependently. There is fluid with mildly elevated Hounsfield units distending the sigmoid and rectum consistent with the patient's clinical history of bleeding. No source is identified. Deedee Radford MD Physical Exam HEENT: PERRL; normocephalic; atraumatic; no jaundice. CHEST: CTA CARDIAC: RRR ABDOMEN: Soft, nondistended, nontender; no hepatosplenomegaly; bowel sounds are present in all four quadrants. EXTREMITIES: No clubbing, cyanosis, or edema. SKIN: Normal; no rash; no jaundice. TROUT FARMER: alert Assessment and Plan Plan ASSESSMENT - n/v with ?hematemesis, rectal bleeding - GIB. limited hx. CT showing poss rectal bleed, stable splenic fluid collection. hx etoh abuse. could be ulcer vs variceal bleed? - anemia - 2/2 above. microcytic. HH trending down since 12/02 blood transfusing - elevated LFTs - unclear etiology. hx etoh abuse. 12/11/17 s/p EGD found gastritis, duodenal ulcer covered with fresh blood s/p epi inj and cautery. colonoscopy found diminutive polyp, pedunculated polyp. EGD bx benign, colon bx pending. no n/ v today. HH relatively stable since yesterday. PLAN - heart healthy diet - await polyp bx - monitor labs - transfuse as needed - await hepatitis panel - supportive care pt seen by myself and Dr Chang and this note is on her behalf Venita Ferrer Dec 11, 2017 14:14
[2017-12-11] MEDS ORDERED: PANT40TA3 PO (14:37)
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
[2017-12-11 14:41] LABS: ALBUMIN 2.4 GM/DL (3.4-5.0); BICARBONATE 26.4 MEQ/L (21.0-32.0); CALCIUM 8.3 MG/DL (8.5-10.1); CREATININE 0.85 MG/DL (0.60-1.30); DIRECT BILIRUBIN ADULT 0.1 MG/DL (0.0-0.2)
[2017-12-11 14:42] LABS: INDIRECT BILIRUBIN 0.2 MG/DL (0.0-0.8); TOTAL BILIRUBIN ADULT 0.3 MG/DL (0.2-1.0); TOTAL PROTEIN 6.2 GM/DL (6.4-8.2)
== END 2017-12-11 16:11 | DRG 378 ==
LOC: NEPE 04:46 → NEDA 08:03 → N04B 16:30
PROVIDERS: ADMIT Family Medicine; ATTEND Family Medicine
PROC: 0DB68ZX Excision of Stomach, Via Natural or Artificial Opening Endoscopic, Diagnostic (ICD-10-PCS; 2017-12-09)
PROC: 30233N1 Transfusion of Nonautologous Red Blood Cells into Peripheral Vein, Percutaneous Approach (ICD-10-PCS; 2017-12-09)
PROC: 0W3P8ZZ Control Bleeding in Gastrointestinal Tract, Via Natural or Artificial Opening Endoscopic (ICD-10-PCS; principal; 2017-12-09 13:22)
PROC: 0DBM8ZX Excision of Descending Colon, Via Natural or Artificial Opening Endoscopic, Diagnostic (ICD-10-PCS; 2017-12-10)
PROC: 0DBN8ZZ Excision of Sigmoid Colon, Via Natural or Artificial Opening Endoscopic (ICD-10-PCS; 2017-12-10)
DX: K26.4 Chronic or unspecified duodenal ulcer with hemorrhage (principal); N17.9 Acute kidney failure, unspecified; D62 Acute posthemorrhagic anemia; D12.4 Benign neoplasm of descending colon; D37.4 Neoplasm of uncertain behavior of colon; D72.829 Elevated white blood cell count, unspecified; F41.9 Anxiety disorder, unspecified; K44.9 Diaphragmatic hernia without obstruction or gangrene; K64.4 Residual hemorrhoidal skin tags; K64.8 Other hemorrhoids; K29.50 Unspecified chronic gastritis without bleeding; S52.92XD Unspecified fracture of left forearm, subsequent encounter for closed fracture with routine healing; S36.112D Contusion of liver, subsequent encounter; S22.43XD Multiple fractures of ribs, bilateral, subsequent encounter for fracture with routine healing; S02.2XXD Fracture of nasal bones, subsequent encounter for fracture with routine healing; F10.10 Alcohol abuse, uncomplicated; V29.9XXD Motorcycle rider (driver) (passenger) injured in unspecified traffic accident, subsequent encounter; Z79.01 Long term (current) use of anticoagulants; Z87.820 Personal history of traumatic brain injury; Z90.81 Acquired absence of spleen; Z98.1 Arthrodesis status
CPT/HCPCS: 36430; 74176; 76937; 80048; 80053; 80076; 82550; 85007; 85014; 85018; 85025; 85027; 85610; 85730; 86850; 86900; 86901; 86920; 88305; 88312; 96365; 96368; 96375; C9113; J0171; J0330; J2405; J7030; J7050; P9016